=== PATIENT | female | born 1950 | race Caucasian/White ===

== ENCOUNTER 2016-09-19 12:29 | Emergency (ER) | payer BC, OTHER ==
[~2016-09-19] VITALS: Ht 182.9 cm; Wt 100.7 kg
[~2016-09-19 12:29] MED LIST: MULT50TA3 PO; OXYB5TAB74 PO; RABE20TA5 PO; VTMD1000 PO
[2016-09-19 12:42] VITALS: TEMP 36.6; Ht 182.9 cm; Wt 100.7 kg
[2016-09-19] MEDS ORDERED: KETOROLAC TROMETHAMINE 30 MG/ML VIAL IV STA (13:15)
[2016-09-19] MEDS ORDERED: SODIUM CHLORIDE 0.9% 1000ML 1,000 ML IV STA (13:15)
--- NOTE | 2016-09-19 13:30 | DIAGNOSTIC IMAGING REPORT ---
CHEST ONE VIEW PORTABLE CLINICAL HISTORY: Chest Pain dyspnea COMPARISON STUDY: No previous studies for comparison. FINDINGS: The bones soft tissues and hemidiaphragms are normal. The cardiomediastinal silhouette is normal. The lungs are clear. The pulmonary vasculature is normal. Small fixed lateral hernia IMPRESSION: Negative chest. Small hiatal hernia Electronically signed by: Doron Hankins M.D. 09/19/2016 1:29 PM Dictated Date/Time: 09/19/2016 1:29 PM
[2016-09-19 14:14] LABS: BASO % 0.2 %; BASO ABS # 0.01 K/uL (0-0.2); COMPLETE YES; EOS % 0.9 %; HEMATOCRIT 46.5 % (37-47); LYMPH % 27.5 %; LYMPH ABS # 1.24 K/uL (1.2-3.4); MEAN CELL VOLUME 92.6 fL (80-100); MEAN CORPUSCULAR HEMOGLOBIN 31.9 pg (25-34); MEAN CORPUSCULAR HGB CONC 34.4 g/dl (32-36); MEAN PLATELET VOLUME 9.5 fL (7.4-10.4); MONO % 11.3 %; NEUT % 60.1 %; PLATELET COUNT 191 K/uL (130-400); RED BLOOD COUNT 5.02 M/uL (4.2-5.4); WHITE BLOOD COUNT 4.51 K/uL (4.8-10.8)
[2016-09-19 14:39] LABS: ALKALINE PHOSPHATASE 84 U/L (45-117); ALT/SGPT 33 U/L (12-78); BLOOD UREA NITROGEN 16 mg/dl (7-18); CALCIUM 9.6 mg/dl (8.5-10.1); CARBON DIOXIDE 24 mmol/L (21-32); CHLORIDE 102 mmol/L (98-107); GLUCOSE 137 mg/dl (70-99); SODIUM 138 mmol/L (136-145)
[2016-09-19 15:23] LABS: POTASSIUM 3.7 mmol/L (3.5-5.1)
[2016-09-19] MEDS ORDERED: OSEL75CA12 PO (15:48)
[2016-09-19] MEDS ORDERED: OSELTAMIVIR PHOSPHATE 75 MG CAP PO STA (15:48)
[2016-09-19 16:05] VITALS: BP 130/80; PULSE 60; O2SAT 97
--- NOTE | 2016-09-19 16:20 | EMERGENCY ROOM VISIT NOTE ---
History Report prepared by Fiorella: Carola Laughlin Under the Supervision of: Dr. Zina Ngo D.O. First contact with patient: 13:05 Chief Complaint: DIARRHEA Stated Complaint: ILLNESS Nursing Triage Summary: Arrives ALS for evaluation of sudden onset of diarrhea, feeling ill this am. Pt reports ill since Monday09/17/16 with chills, nausea, H/A, loss of appetite and prod cough with yellow sputum. Pt had BP taken at work and was hypotensive sbp 80's. 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 History of Present Illness The patient is a 65 year old female who presents to the Emergency Room with complaints of a persistent illness that initially began Monday. The patient states that Monday she started with a cough, runny nose, sore throat, chills, and fatigue. She states that this morning she developed diarrhea and additionally felt nauseous noting 3 diarrhea bowel movements. The patient states that she felt lightheaded and dizzy while at work today and had a near syncopal episode while at work. She states that she was in the bathroom standing when the episode occurred stating that it was after a bowel movement. The patient denies any recent antibiotic usage. Pt denies headache, change in vision, fevers, chest pain, shortness of breath, vomiting, abdominal pain, pain with urination, and melena. Source of History: patient Onset: Monday Position: other (global) Quality: other (illness) Timing: other (persistent) Associated Symptoms: + chills, + cough, + diarrhea, + fatigue, + nausea, + sorethroat Note: Associated Symptoms: runny nose Review of Systems See HPI for pertinent positives & negatives. A total of 10 systems reviewed and were otherwise negative. Past Medical & Surgical Medical Problems: (1) Acid reflux Family History No pertinent family history stated. Social History Smoking Status: Former Smoker Marital Status: Housing Status: lives with significant other Occupation Status: employed Current/Historical Medications Scheduled Cholecalciferol (Vitamin D3), 1,000 INTER.UNIT PO QAM Multiple Vitamins W/ Minerals (One Daily 50 Plus), 1 TAB PO QAM Oseltamivir (Tamiflu), 75 MG PO BID Oxybutynin Chloride (Ditropan), 5 MG PO QAM Allergies Coded Allergies: Clarithromycin (Unverified Allergy, Severe, SHORTNESS OF BREATH, ITCH, ) Levofloxacin (Verified Allergy, Mild, SKIN CRAWLING FELLING, 09/19/16) Penicillins (Verified Allergy, Mild, HIVES, 09/19/16) Sulfa Antibiotics (Verified Allergy, Mild, hives, 09/19/16) Meperidine (Verified Adverse Reaction, Unknown, HEADACHES, 09/19/16) Physical Exam Vital Signs Date Time Temp Pulse Resp B/P Pulse Ox O2 Delivery O2 Flow Rate FiO2 09/19/16 16:05 60 18 130/80 97 Room Air 09/19/16 15:01 59 18 133/75 98 Room Air 09/19/16 12:47 Room Air 09/19/16 12:44 65 09/19/16 12:42 36.6 60 17 121/63 98 Room Air Physical Exam GENERAL: Disheveled, sitting up in bed, no acute distress, nontoxic. Dry nonproductive cough EYE EXAM: normal conjunctiva. OROPHARYNX: no exudate, no erythema, lips, buccal mucosa, and tongue normal and mucous membranes are moist NECK: supple, no nuchal rigidity, no adenopathy, non-tender LUNGS: Clear to auscultation. Normal chest wall mechanics HEART: no murmurs, S1 normal and S2 normal ABDOMEN: abdomen soft, non-tender, normo-active bowel sounds, no masses, no rebound or guarding. BACK: Back is symmetrical on inspection and there is no deformity, no midline tenderness, no CVA tenderness. SKIN: no rashes and no bruising UPPER EXTREMITIES: upper extremities are grossly normal. LOWER EXTREMITIES: No pitting edema. NEURO EXAM: Normal sensorium, cranial nerves II-XII grossly intact, normal speech, no gross weakness of arms, no gross weakness of legs. No drift. Finger to nose intact. Gross sensation intact. Rapid alternating movements of the upper extremities are intact. Medical Decision & Procedures ER Provider Diagnostic Interpretation: Xray results per the radiologist and my interpretation. Other results have been interpreted by the radiologist and reviewed by me. CHEST ONE VIEW PORTABLE CLINICAL HISTORY: Chest Pain dyspnea COMPARISON STUDY: No previous studies for comparison. FINDINGS: The bones soft tissues and hemidiaphragms are normal. The cardiomediastinal silhouette is normal. The lungs are clear. The pulmonary vasculature is normal. Small fixed lateral hernia IMPRESSION: Negative chest. Small hiatal hernia Electronically signed by: Doron Hankins M.D. 09/19/2016 1:29 PM Dictated Date/Time: 09/19/2016 1:29 PM Laboratory Results 09/19/16 14:00 Red Blood Count 5.02, Mean Corpuscular Volume 92.6, Mean Corpuscular Hemoglobin 31.9, Mean Corpuscular Hemoglobin Concent 34.4, Mean Platelet Volume 9.5, Neutrophils (%) (Auto) 60.1, Lymphocytes (%) (Auto) 27.5, Monocytes (%) (Auto) 11.3, Eosinophils (%) (Auto) 0.9, Basophils (%) (Auto) 0.2, Neutrophils # (Auto ) 2.71, Lymphocytes # (Auto) 1.24, Monocytes # (Auto) 0.51, Eosinophils # (Auto ) 0.04, Basophils # (Auto) 0.01 09/19/16 14:00 Test 09/19/16 14:00 09/19/16 14:03 White Blood Count 4.51 K/uL (4.8-10.8) Red Blood Count 5.02 M/uL (4.2-5.4) Hemoglobin 16.0 g/dL (12.0-16.0) Hematocrit 46.5 % (37-47) Mean Corpuscular Volume 92.6 fL (80-100) Mean Corpuscular Hemoglobin 31.9 pg (25-34) Mean Corpuscular Hemoglobin Concent 34.4 g/dl (32-36) Platelet Count 191 K/uL (130-400) Mean Platelet Volume 9.5 fL (7.4-10.4) Neutrophils (%) (Auto) 60.1 % Lymphocytes (%) (Auto) 27.5 % Monocytes (%) (Auto) 11.3 % Eosinophils (%) (Auto) 0.9 % Basophils (%) (Auto) 0.2 % Neutrophils # (Auto) 2.71 K/uL (1.4-6.5) Lymphocytes # (Auto) 1.24 K/uL (1.2-3.4) Monocytes # (Auto) 0.51 K/uL (0.11-0.59) Eosinophils # (Auto) 0.04 K/uL (0-0.5) Basophils # (Auto) 0.01 K/uL (0-0.2) RDW Standard Deviation 42.8 fL (36.4-46.3) RDW Coefficient of Variation 12.7 % (11.5-14.5) Immature Granulocyte % (Auto) 0.0 % Immature Granulocyte # (Auto) 0.00 K/uL (0.00-0.02) Anion Gap 12.0 mmol/L (3-11) Est Creatinine Clear Calc Drug Dose 58.1 ml/min Estimated GFR () 50.2 Estimated GFR (Non- 43.3 BUN/Creatinine Ratio 12.0 (10-20) Calcium Level 9.6 mg/dl (8.5-10.1) Total Bilirubin 0.6 mg/dl (0.2-1) Direct Bilirubin mg/dl (0-0.2) Aspartate Amino Transf (AST/SGOT) U/L (15-37) Alanine Aminotransferase (ALT/SGPT) 33 U/L (12-78) Alkaline Phosphatase 84 U/L (45-117) Total Creatine Kinase U/L (26-192) Creatine Kinase MB 0.9 ng/ml (0.5-3.6) Creatine Kinase MB Ratio (0-3.0) Troponin I < 0.015 ng/ml (0-0.045) Total Protein 9.1 gm/dl (6.4-8.2) Albumin 4.5 gm/dl (3.4-5.0) Lipase 210 U/L (73-393) Influenza Type A Antigen POS for Influ A (NEG) Influenza Type B Antigen Neg for Influ B (NEG) Laboratory results per my review. Medications Administered Medications (Trade) Dose Ordered Sig/Jose Route Start Time Stop Time Status Last Admin Dose Admin Sodium Chloride (Nss 1000ml) 1,000 ml @ 999 mls/hr Q1H1M STAT IV 09/19/16 13:15 09/19/16 15:17 DC 09/19/16 13:15 999 MLS/HR Oseltamivir Phosphate (Tamiflu Cap) 75 mg NOW STAT PO 09/19/16 15:48 09/19/16 15:49 DC 09/19/16 16:03 75 MG ECG Indication: syncope Rate (beats per minute): 63 Rhythm: sinus rhythm Findings: no ectopy, other (left axis) Comparison ECG Date: no prior available ED Course ED COURSE: Vital signs were reviewed and showed normal vitals. The patients medical record was reviewed The above diagnostic studies were performed and reviewed. ED treatments and interventions as stated above. 1308: The patient was evaluated in room A12A. A complete history and physical examination was performed. 1315: Ordered Sodium Chloride 1000 ml @ 999 mls/hr IV. 1400: I reevaluated the patient and she is resting comfortably. 1425: I reevaluated the patient and she informed me that she has had three days worth of diarrhea. 1548: Ordered Tamiflu Cap 75 mg PO. 1550: Upon reevaluation, the patient is resting comfortably.I discussed my findings with the patient and she understands and agrees with the treatment plan. Based on the patients age, coexisting illnesses, exam and lab findings the decision to treat as an outpatient was made. The patient remained stable while under my care. The patient appeared well at the time of discharge. Medical Decision Differential Diagnosis includes but is not limited to dehydration, stroke, anemia, hypoglycemia, hyponatremia, hypernatremia, urinary tract infection, pneumonia, bronchitis, sepsis, gastroenteritis, additional abdominal pathology, metabolic abnormalities and infections. Patient is a 65-year-old female who presents the ER for cough associated with sore throat, diffuse weakness and diarrhea which has been present for the past 3 days. She denies any fevers. No recent travel. No antibiotics. Her abdominal exam is benign. She has no belly plain. Labs show no significant leukocytosis or anemia. BMP along with AST and total bilirubin are normal. Troponin was normal. Lipase was normal. Chest x-ray was unremarkable. Influenza A was positive. Patient was updated regards to findings. She was given a bolus normal saline and Tamiflu. Unable to obtain a stool sample but she is a low risk for C. difficile. She was discharged with Tamiflu and instructed to follow-up with her primary care doctor. Discussed with Pt concerning signs and symptoms to watch out for. Pt was instructed to follow up with their PCP and discussed with the patient their option to return to the ED at anytime for persistent or worsening symptoms. The appropriate anticipatory guidance and out-patient management, including indications for return to the emergency department, were explained at length to the patient and understood. Impression Primary Impression: Influenza A Additional Impression: Diarrhea Scribe Attestation The scribe's documentation has been prepared under my direction and personally reviewed by me in its entirety. I confirm that the note above accurately reflects all work, treatment, procedures, and medical decision making performed by me. Departure Information Dispostion Home / Self-Care Prescriptions Oseltamivir (Tamiflu) 75 Mg Cap 75 MG PO BID, #10 CAP Prov: Garcia Mason, DO 09/19/16 Referrals Manuela King M.D. (PCP) Forms HOME CARE DOCUMENTATION FORM, IMPORTANT VISIT INFORMATION, WORK / SCHOOL INSTRUCTIONS Patient Instructions Diarrhea, My [facility], Oseltamivir Phosphate Oral capsule Additional Instructions Please follow up with your primary care doctor with in the next 24 hours. Any worsening of your symptoms, please return to the ED immediately. This includes any fevers greater than 100.4, passing out, worsening shortness of breath, confusion, or any other concerning signs or symptoms from your standpoint. If he continues to have diarrhea for the next 4 days please follow a primary care doctor for stool culture. Problem Qualifiers Additional Impression: Diarrhea Diarrhea type: unspecified type Qualified Codes: R19.7 - Diarrhea, unspecified
[2016-12-19] MEDS ORDERED: PANT40TA PO (16:40)
== END 2016-09-19 16:07 | disposition home or self-care (01) ==
LOC: EDBD 12:29 → C.EDA 12:30
DX: J09.X2 Influenza due to identified novel influenza A virus with other respiratory manifestations (principal); R19.7 Diarrhea, unspecified; K21.9 Gastro-esophageal reflux disease without esophagitis; Z87.891 Personal history of nicotine dependence; Z79.899 Other long term (current) drug therapy; Z88.0 Allergy status to penicillin; Z88.2 Allergy status to sulfonamides; Z88.8 Allergy status to other drugs, medicaments and biological substances

== ENCOUNTER 2016-12-15 13:28 | Inpatient (IN) | payer BC, OTHER ==
[~2016-12-15] VITALS: Ht 182.9 cm; Wt 102.6 kg
[~2016-12-15 13:28] MED LIST changes: +DTR/5 PO; +OSEL75CA12 PO; -OXYB5TAB74 PO; -RABE20TA5 PO
[2016-12-15 14:11] LABS: HEMATOCRIT 42.6 % (37-47); MEAN CELL VOLUME 92.6 fL (80-100); MEAN CORPUSCULAR HEMOGLOBIN 31.1 pg (25-34); MEAN CORPUSCULAR HGB CONC 33.6 g/dl (32-36); MEAN PLATELET VOLUME 9.1 fL (7.4-10.4); PLATELET COUNT 234 K/uL (130-400); WHITE BLOOD COUNT 10.02 K/uL (4.8-10.8)
--- NOTE | 2016-12-15 14:14 | DIAGNOSTIC IMAGING REPORT ---
SINGLE VIEW CHEST CLINICAL HISTORY: Atypical chest pain. FINDINGS: An AP, portable, upright chest radiograph is compared to study dated 09/19/2016. The examination is mildly degraded by portable technique and patient rotation. The heart is top normal for projection. The mediastinal contour is within normal limits. The lungs and pleural spaces are clear. No pneumothorax is seen. The skeletal structures are osteopenic. The bony thorax is grossly intact. Calcific tendinopathy is noted in the right shoulder. IMPRESSION: No active disease in the chest. Electronically signed by: Nir Lakhani M.D. 12/15/2016 2:13 PM Dictated Date/Time: 12/15/2016 2:10 PM
[2016-12-15 14:20] LABS: PARTIAL THROMBOPLASTIN RATIO 1.1; PROTHROMBIN TIME (PATIENT) 10.4 SECONDS (9.0-12.0)
[2016-12-15] MEDS ORDERED: MoRPHine SULFATE 4 MG/ML 1 ML CARP\\VIAL IV STA (14:21)
[2016-12-15] MEDS ORDERED: ONDANSETRON INJ 2 MG/ML 2 ML VIAL IV STA (14:21)
[2016-12-15] MEDS ORDERED: NITROGLYCERIN OINT 2% 1GM PACKET EXT STA (14:21)
[2016-12-15] MEDS ORDERED: ASPIRIN 324 MG CHEW PO STA (14:21)
[2016-12-15 14:33] LABS: BUN/CREATININE RATIO 19.1 (10-20); CALCIUM 9.7 mg/dl (8.5-10.1); CREATININE 0.88 mg/dl (0.60-1.20); POTASSIUM 4.1 mmol/L (3.5-5.1)
[2016-12-15] MEDS ORDERED: NITROGLYCERIN OINT 2% 1GM PACKET ONE (14:35)
[2016-12-15 14:37] LABS: ALB/GLOB RATIO 1.2 (0.9-2); CKMB/CK RATIO 1.3 (0-3.0)
[2016-12-15] MEDS ORDERED: RANI150T2 PO (15:00)
[2016-12-15] MEDS ORDERED: FAMO20TA11 PO (15:01)
[2016-12-15] MEDS ORDERED: IBUP-1459 PO (15:02)
--- NOTE | 2016-12-15 15:41 | EMERGENCY ROOM VISIT NOTE ---
History First contact with patient: 14:05 Chief Complaint: CHEST PAIN Stated Complaint: TIGHT CHEST Nursing Triage Summary: Pt presents with mid to right sided chest pain since 0900, constant. Denies sob , lightheadedness. Denies radiation of pain. History of Present Illness The patient is a 66 year old female who presents to the Emergency Room via private vehicle with complaints of "tight chest". The patient states that earlier today around 9 to 9:30 AM she began with acid reflux, followed by hiccuping and vomiting. She notes that she did develop right anterior chest pain that is also substernal. She rates the pain as 10/10 and constant. This pain is worse with movement. She does not have any history of having this before and denies any history of heart troubles, heart attacks or blood clots. Review of Systems A complete 10-point Review of Systems was discussed with the patient, with pertinent positives and negatives listed in the History of Present Illness. All remaining Review of Systems questions can be considered negative unless otherwise specified. Past Medical/Surgical History Medical Problems: (1) Acid reflux (2) Chest pain cholecystectomy appendectomy esophageal stricture s/p dilatation c/s x 2 right foot surgery (tendon rupture) Family History Maternal - GERD; from pancreatic cancer, age 85 Paternal - GERD; from dementia at age 87 Social History Smoking Status: Former Smoker Marital Status: Housing Status: lives with significant other Occupation Status: employed Social History: Marital Status: , 2 children Occupational Status: employed, [employer] Smoking Status: Former Smoker (quit 31 years ago; smoked 10-15 years ) Alcohol Use: weekends - 2 glasses of liquor or wine each day on a weekend Current/Historical Medications Scheduled Cholecalciferol (Vitamin D3), 1,000 INTER.UNIT PO QAM Famotidine (Pepcid), 40 MG PO UD Multiple Vitamins W/ Minerals (One Daily 50 Plus), 1 TAB PO QAM Oxybutynin Chloride (Ditropan), 5 MG PO QAM Scheduled PRN Ibuprofen (Motrin), 400 MG PO Q6H PRN for Pain Ranitidine HCl (Ranitidine HCl), 150 MG PO UD PRN for Indigestion Allergies Coded Allergies: Clarithromycin (Verified Allergy, Severe, SHORTNESS OF BREATH, ITCH, ) Penicillins (Verified Allergy, Intermediate, HIVES, 12/15/16) Sulfa Antibiotics (Verified Allergy, Intermediate, hives, 12/15/16) Levofloxacin (Verified Allergy, Mild, SKIN CRAWLING FELLING, 12/15/16) Meperidine (Verified Adverse Reaction, Mild, HEADACHES, 12/15/16) Physical Exam Vital Signs Date Time Temp Pulse Resp B/P Pulse Ox O2 Delivery O2 Flow Rate FiO2 12/15/16 19:35 83 26 150/76 97 Room Air 12/15/16 18:07 85 12/15/16 17:24 81 18 145/72 95 Room Air 12/15/16 14:37 69 17 160/75 98 Room Air 12/15/16 13:55 99 Room Air 12/15/16 13:55 99 Room Air 12/15/16 13:48 84 12/15/16 13:31 36.7 98 16 178/91 99 Room Air Physical Exam VITAL SIGNS - Vital signs and nursing notes were reviewed. Patient is afebrile , hypertensive at 178/91, tachycardic at a rate of 90 bpm and is saturating well on room air at 99%. GENERAL -66-year-old female her appearing [] stated age who is in no acute distress. Communicates well with provider and answers questions appropriately. SKIN - Without rashes. No petechial rashes. HEAD - NC/AT. EYES - PERRL with EOMI bilaterally. Sclera anicteric. Palpebral conjunctiva pink and moist with no injection noted. EARS - No deformities of external structures noted on gross examination bilaterally. No pain elicited with palpation of the tragus bilaterally. External auditory canals without discharge or otorrhea. Tympanic membranes pearly hinton without retraction or bulging. No fluid or purulent material visualized behind the TM. Handle of malleus, umbo, cone of light, pars tensa/ flaccid all easily visualized. NOSE - Midline and without cyanosis. No epistaxis or purulent drainage noted. Septum midline without deviation or septal hematoma noted. MOUTH/OROPHARYNX - Without perioral cyanosis. Buccal mucosa pink and moist and without leukoplakia. Tongue midline with equal elevation of palate bilaterally. No tonsillar hypertrophy, erythema, or exudates noted. Good dentition noted. NECK - Neck with FROM. Supple to palpation. No lymphadenopathy noted. No nuchal rigidity. LUNGS - Chest wall symmetric without accessory muscle use, intercostals retractions, or central cyanosis. Normal vesicular breath sounds CTA B/L. No wheezes, rales, or rhonchi appreciated. CARDIAC - RRR with S1/S2. holosystolic murmur best appreciated at apex. No rubs , or gallops appreciated. The anterior chest pain is not reproducible with palpation. ABDOMEN - Abdominal contour without pulsations or visible masses. BS normoactive all four quadrants. No tenderness, palpable masses, hepatosplenomegaly, or ascites noted. EXTREMITIES - No clubbing or peripheral cyanosis. No pretibial edema present. + 5/5 strength noted in UE/LE bilaterally. NEUROLOGIC - Cranial nerves II through XII grossly intact. Patellar reflexes +2/ 4. PSYCH - A&Ox3 and cooperates fully with examiner. Pt is very pleasant and interacts well with examiner. Medical Decision & Procedures ER Provider Diagnostic Interpretation: contrast was administered without complication. MIP imaging was performed. CT DOSE: 501.34 mGy.cm FINDINGS: There is a hiatal hernia with moderate diffuse esophageal wall thickening. There is an enlarged 15 mm lymph node near the esophagogastric junction. 15 mm lymph node near the esophagogastric junction. No evidence of pathologic axillary or hilar adenopathy. There was no evidence of thoracic aortic dilatation. There were no pulmonary artery filling defects to indicate acute pulmonary embolism. No pleural effusions are visualized. There are dependent atelectatic changes. There is no focal pulmonary consolidation. IMPRESSION: 1. No CT evidence of acute pulmonary embolism 2. No evidence of focal pulmonary consolidation 3. Moderate diffuse esophageal wall thickening with an enlarged 15 mm lymph node near the esophagogastric junction. Electronically signed by: Willem Farrell M.D. 12/15/2016 4:52 PM Dictated Date/Time: 12/15/2016 4:48 PM Laboratory Results Test 12/15/16 13:55 12/15/16 14:30 Prothrombin Time 10.4 SECONDS (9.0-12.0) Prothromb Time International Ratio 1.0 (0.9-1.1) Activated Partial Thromboplast Time 27.4 SECONDS (21.0-31.0) Partial Thromboplastin Ratio 1.1 D-Dimer 1800 ug/L FEU (0-500) Total Bilirubin 0.8 mg/dl (0.2-1) Aspartate Amino Transf (AST/SGOT) 18 U/L (15-37) Alanine Aminotransferase (ALT/SGPT) 24 U/L (12-78) Alkaline Phosphatase 86 U/L (45-117) Total Creatine Kinase 109 U/L (26-192) Creatine Kinase MB 1.4 ng/ml (0.5-3.6) Creatine Kinase MB Ratio 1.3 (0-3.0) Total Protein 8.5 gm/dl (6.4-8.2) Albumin 4.6 gm/dl (3.4-5.0) Globulin 3.9 gm/dl (2.5-4.0) Albumin/Globulin Ratio 1.2 (0.9-2) Bedside Troponin I 0.000 ng/ml (0-0.045) Medications Administered Medications (Trade) Dose Ordered Sig/Jose Route Start Time Stop Time Status Last Admin Dose Admin Morphine Sulfate (MoRPHine SULFATE INJ) 4 mg NOW STAT IV 12/15/16 14:21 12/15/16 14:23 DC 12/15/16 14:43 4 MG Ondansetron HCl (Zofran Inj) 4 mg NOW STAT IV 12/15/16 14:21 12/15/16 14:23 DC 12/15/16 14:39 4 MG Aspirin (Aspirin Chew) 324 mg NOW STAT PO 12/15/16 14:21 12/15/16 14:23 DC 12/15/16 14:44 324 MG Nitroglycerin (Nitroglycerin 2% Oint) 0.5 inch NOW STAT EXT 12/15/16 14:21 12/15/16 14:23 DC 12/15/16 14:42 0.5 INCH Lidocaine HCl (Viscous Lidocaine 2% Soln) 20 ml STK-MED ONCE .ROUTE 12/15/16 17:21 12/15/16 17:22 DC 12/15/16 17:23 20 ML Al Hydroxide/Mg Hydroxide 30 ml 30 ml STK-MED ONCE .ROUTE 12/15/16 17:21 12/15/16 17:22 DC 12/15/16 17:23 30 ML Pantoprazole Sodium/Syringe (Protonix Inj/ Syringe) 10 ml @ 5 mls/min TODAY@1845 IV 12/15/16 18:45 12/15/16 19:00 DC 12/15/16 19:39 5 MLS/MIN Sucralfate 1 gm 1 gm 1915 ONCE PO 12/15/16 19:15 4/27/17 19:16 DC 12/15/16 19:58 1 GM Sodium Chloride (Nss 1000ml) 1,000 ml @ 125 mls/hr Q8H IV 12/15/16 19:48 01/14/17 19:47 12/15/16 23:58 125 MLS/HR Medical Decision Patient was seen and evaluated as above. After obtaining a thorough history and physical examination IV access was initiated and the above workup was performed. The patient presents with chest pain, and history of GERD. She states that this feels different than her typical GERD. She does not appear to have many risk factors at this time, however ACS cannot be excluded. CBC reveals no leukocytosis or anemia. Coagulation studies unremarkable. D-dimer elevated at 1800. Her electrolytes were normal. Glucose was 110. Total protein elevated 8.5. Troponin here is 0. Chest x-ray essentially unremarkable for acute process. CTA was ordered because of the patient's d- dimer and I could not PERC negative her and she was 66 years old with tachycardia. D-dimer was elevated, scan was initiated. Scan is noted as above. The patient has esophageal thickening and a hiatal hernia. This certainly could be contributing to her pain suggesting perhaps she had esophagitis. Her pain was alleviated by nitroglycerin. The patient was discussed my attending. The patient's EKG revealed a normal sinus rhythm with left axis deviation, rate of 80 bpm. This was compared to EKG of 09/19/2016. This was also normal sinus. No significant change was found at this time. The patient's troponin was negative 1 is no significant EKG change. The patient certainly does have symptoms that are likely secondary to GERD however I cannot rule out ACS in the emergency department setting. I do believe it is warranted the patient stay overnight in the hospital for monitoring of her heart rhythm followed by troponin repeats. Further workup may be warranted if arrhythmias are noted, or troponins are elevated etc. I did discuss the case with the hospitalist team. Please refer to further documentation regarding her stay. In evaluation treatment this patient following differential diagnoses were entertained: NM, PE, pericarditis, pleurisy, pneumonia, pneumothorax, esophageal cancer, esophagitis, among others. Impression Primary Impression: Chest pain Additional Impressions: Anemia Esophageal thickening Departure Information Dispostion Admitted as an inpatient Condition FAIR Referrals Manuela King M.D. (PCP) Patient Instructions [facility] Problem Qualifiers
[2016-12-15] MEDS ORDERED: OPTIRAY 320 IV PRN (16:00)
--- NOTE | 2016-12-15 16:53 | DIAGNOSTIC IMAGING REPORT ---
CT ANGIOGRAM OF THE CHEST CLINICAL HISTORY: Atypical chest pain COMPARISON STUDY: Chest x-ray dated 12/15/2016 TECHNIQUE: Following the IV administration of 86 mL of Optiray-320, CT angiogram of the thorax was performed from the thoracic inlet to the lung bases utilizing the pulmonary embolus protocol. Images are reviewed in the axial, sagittal, and coronal planes. IV contrast was administered without complication. MIP imaging was performed. CT DOSE: 501.34 mGy.cm FINDINGS: There is a hiatal hernia with moderate diffuse esophageal wall thickening. There is an enlarged 15 mm lymph node near the esophagogastric junction. 15 mm lymph node near the esophagogastric junction. No evidence of pathologic axillary or hilar adenopathy. There was no evidence of thoracic aortic dilatation. There were no pulmonary artery filling defects to indicate acute pulmonary embolism. No pleural effusions are visualized. There are dependent atelectatic changes. There is no focal pulmonary consolidation. IMPRESSION: 1. No CT evidence of acute pulmonary embolism 2. No evidence of focal pulmonary consolidation 3. Moderate diffuse esophageal wall thickening with an enlarged 15 mm lymph node near the esophagogastric junction. Electronically signed by: Willem Farrell M.D. 12/15/2016 4:52 PM Dictated Date/Time: 12/15/2016 4:48 PM
[2016-12-15] MEDS ORDERED: GI COCKTAIL PO STA (17:06)
[2016-12-15] MEDS ORDERED: LIDOCAINE HCL 2% VISC SOLN 20 ML UDC ONE (17:21)
[2016-12-15] MEDS ORDERED: ALUMINUM/MAGNESIUM SUSP 30 ML UDC ONE (17:21)
--- NOTE | 2016-12-15 18:38 | EMERGENCY ROOM VISIT NOTE ---
ED Visit Note First contact with patient: 18:00 I seen and evaluated the patient at bedside and agree with the PAs plan loss far. We have discussed the labs and imaging as well as the patient's risk factors. Patient with continued chest pain despite negative evaluation so far. While likely secondary to esophageal inflammation noted on CT and history of GERD, needs additional observation and serial troponins to rule out ACS. No other acute vascular pulmonary pathology noted. Patient with stable vitals on the emergency room, verbalized understanding of all results and was agreeable with plan.
[2016-12-15] MEDS ORDERED: PANTOprazole INJ 40 MG in SYRINGE 0 ML IV SCH (18:45)
[2016-12-15] MEDS ORDERED: SUCRALFATE 1 GM/10 ML UDC PO ONE (19:15)
[2016-12-15] MEDS ORDERED: ZOLPIDEM TARTRATE 5 MG TAB PO PRN (20:00)
[2016-12-15] MEDS ORDERED: ALUMINUM/MAGNESIUM/SIMETH (MAALOX MAX) 30 ML UDC PO PRN (20:00)
[2016-12-15] MEDS ORDERED: ONDANSETRON INJ 2 MG/ML 2 ML VIAL IV PRN (20:00)
[2016-12-15] MEDS ORDERED: MoRPHine SULFATE 2 MG/ML CARP IV PRN (20:00)
[2016-12-15] MEDS ORDERED: SODIUM CHLORIDE 0.9% 500ML 500 ML IV ONE (20:17)
[2016-12-15 20:20] VITALS: BP 162/72; PULSE 81; TEMP 36.9; O2SAT 95; Ht 182.9 cm; Wt 102.6 kg
[2016-12-15] MEDS ORDERED: IV FLUIDS COMPLETED PRN (20:30)
[2016-12-15] MEDS: ACETAMINOPHEN 325 MG TAB PO PRN (20:46)
--- NOTE | 2016-12-15 21:04 | History and Physical ---
History & Physical Date & Time of Service: Dec 15, 2016 at 18:44 Chief Complaint: Tight Chest Primary Care Physician: Maunela King M.D. History of Present Illness Source: patient, spouse 66yo female with h/o GERD who presents with ongoing chest symptoms since 9am this morning. She was at the [facility] eating breakfast with her friends when she developed discomfort in the mid-chest region after trying to swallow food. She feels like food got caught in the esophagus. It caused discomfort and thus she tried to regurgitate the food but she wasn't successful. She then developed constant, substernal "heart attack" type pain that has persisted all day. Some of the pain has radiated to the right side of her chest. She ultimately came to [facility] for evaluation because of the persistence of the symptoms. In the ER she has received morphine, nitroglycerin and GI cocktail - all with partial relief of symptoms. She does not take PPI but uses pepcid ac and zantac on a PRN basis. Most days of the week she gets GERD symptoms. She has occasional nocturnal symptoms. No recent weight loss. She does have frequent dysphagia, mainly for solids. Takes NSAIDs - motrin - perhaps 2-3x's each week. Uses this for arthritis. Admits to alcohol use but just on weekends (liquor and/or wine). Denies any recent exertional chest pain or sob. Past Medical/Surgical History PMH: 1. GERD 2. esophageal stricture s/p dilatation - 2015 (Dr. Braxton Sweeney) PSH: 1. c/s x 2 2. right foot surgery (tendon rupture) 3. cholecystectomy 4. appendectomy Family History mother - GERD; from pancreatic cancer, age 85 father - GERD; from dementia at age 87 no family h/o esophageal cancer Social History Smoking Status: Former Smoker (quit 31 years ago; smoked 10-15 years ) Alcohol Use: weekends - 2 glasses of liquor or wine each day on a weekend Marital Status: (2 kids) Occupational Status: employed (works at [email or web address]) Allergies Coded Allergies: Clarithromycin (Verified Allergy, Severe, SHORTNESS OF BREATH, ITCH, ) Penicillins (Verified Allergy, Intermediate, HIVES, 12/15/16) Sulfa Antibiotics (Verified Allergy, Intermediate, hives, 12/15/16) Levofloxacin (Verified Allergy, Mild, SKIN CRAWLING FELLING, 12/15/16) Meperidine (Verified Adverse Reaction, Mild, HEADACHES, 12/15/16) Home Medications Scheduled Cholecalciferol (Vitamin D3), 1,000 INTER.UNIT PO QAM Famotidine (Pepcid), 40 MG PO UD Multiple Vitamins W/ Minerals (One Daily 50 Plus), 1 TAB PO QAM Oxybutynin Chloride (Ditropan), 5 MG PO QAM Scheduled PRN Ibuprofen (Motrin), 400 MG PO Q6H PRN for Pain Ranitidine HCl (Ranitidine HCl), 150 MG PO UD PRN for Indigestion Review of Systems Constitutional: No chills, No fatigue, No fever, No weight loss ENT: + trouble swallowing, No nasal symptoms, No sore throat Respiratory: + problem reported (snoring ), No cough, No dyspnea on exertion, No shortness of breath, No wheezing Cardiovascular: + chest pain, No PND, No orthopnea Abdomen: + vomiting (x 2 earlier today), No GI bleeding, No pain Genitourinary - Female: No dysuria, No hematuria Neurologic: No numbness/tingling Psychiatric: No anxiety, No depression symptoms Endocrine: No fatigue Hematologic / Lymphatic: No abnormal bleeding/bruising Integumentary: No rash Physical Exam Vital Signs Date Time Temp Pulse Resp B/P Pulse Ox O2 Delivery O2 Flow Rate FiO2 12/15/16 18:07 85 12/15/16 17:24 81 18 145/72 95 Room Air 12/15/16 14:37 69 17 160/75 98 Room Air 12/15/16 13:55 99 Room Air 12/15/16 13:55 99 Room Air 12/15/16 13:48 84 12/15/16 13:31 36.7 98 16 178/91 99 Room Air General Appearance: + mild distress (looks uncomfortable; belching and occasionally holding her chest) Head: normocephalic, atraumatic Eyes: normal inspection, PERRL ENT: TMs normal, pharynx normal Neck: supple, no adenopathy, thyroid normal, no JVD Respiratory/Chest: normal breath sounds, no respiratory distress, no accessory muscle use, + crackles (slight, bases only), + pertinent finding (scant chest wall tenderness with palpation but the pain is different than the pain she has had all day) Cardiovascular: regular rate, rhythm, no gallop, no murmur, normal peripheral pulses Abdomen/GI: normal bowel sounds, non tender, soft, no organomegaly Back: normal inspection Extremities/Musculoskelatal: no pedal edema Neurologic/Psych: no motor/sensory deficits, alert, normal mood/affect, normal reflexes, oriented x 3 Skin: no rash Lymphatic: no adenopathy (cervical ) Diagnostics Laboratory Results Results Past 24 Hours Test 12/15/16 13:55 12/15/16 14:30 Range/Units White Blood Count 10.02 4.8-10.8 K/uL Red Blood Count 4.60 4.2-5.4 M/uL Hemoglobin 14.3 12.0-16.0 g/dL Hematocrit 42.6 37-47 % Mean Corpuscular Volume 92.6 80-100 fL Mean Corpuscular Hemoglobin 31.1 25-34 pg Mean Corpuscular Hemoglobin Concent 33.6 32-36 g/dl RDW Standard Deviation 42.6 36.4-46.3 fL RDW Coefficient of Variation 12.6 11.5-14.5 % Platelet Count 234 130-400 K/uL Mean Platelet Volume 9.1 7.4-10.4 fL Prothrombin Time 10.4 9.0-12.0 SECONDS Prothromb Time International Ratio 1.0 0.9-1.1 Activated Partial Thromboplast Time 27.4 21.0-31.0 SECONDS Partial Thromboplastin Ratio 1.1 D-Dimer 1800 0-500 ug/L FEU Sodium Level 138 136-145 mmol/L Potassium Level 4.1 3.5-5.1 mmol/L Chloride Level 103 98-107 mmol/L Carbon Dioxide Level 29 21-32 mmol/L Anion Gap 6.0 3-11 mmol/L Blood Urea Nitrogen 17 7-18 mg/dl Creatinine 0.88 0.60-1.20 mg/dl Est Creatinine Clear Calc Drug Dose 85.4 ml/min Estimated GFR () 79.9 Estimated GFR (Non- 68.9 BUN/Creatinine Ratio 19.1 10-20 Random Glucose 110 70-99 mg/dl Calcium Level 9.7 8.5-10.1 mg/dl Total Bilirubin 0.8 0.2-1 mg/dl Aspartate Amino Transf (AST/SGOT) 18 15-37 U/L Alanine Aminotransferase (ALT/SGPT) 24 12-78 U/L Alkaline Phosphatase 86 45-117 U/L Total Creatine Kinase 109 26-192 U/L Creatine Kinase MB 1.4 0.5-3.6 ng/ml Creatine Kinase MB Ratio 1.3 0-3.0 Total Protein 8.5 6.4-8.2 gm/dl Albumin 4.6 3.4-5.0 gm/dl Globulin 3.9 2.5-4.0 gm/dl Albumin/Globulin Ratio 1.2 0.9-2 Bedside Troponin I 0.000 0-0.045 ng/ml Diagnostic Radiology CTA chest: IMPRESSION: 1. No CT evidence of acute pulmonary embolism 2. No evidence of focal pulmonary consolidation 3. Moderate diffuse esophageal wall thickening with an enlarged 15 mm lymph node near the esophagogastric junction. EKG EKG - NSR, no ST changes Impression Assessment and Plan 66yo female with long-standing GERD and h/o esophageal stricture in 2016 requiring endoscopic dilatation by Dr. Braxton Sweeney presenting with constant, substernal chest discomfort since early this AM. Cardiopulmonary work-up thus far has been negative and CTA chest demonstrated esophageal thickening. The latter is the likely cause of her presenting symptoms. 1. chest pain - very unlikely to be cardiac in origin. Will obtain 2 more troponins to be complete but suspect these will be normal. Telemetry overnight. In light of the CTA findings showing the esophageal thickening/inflammation her pain is likely from the esophagus. Stop the nitropaste. Start IV protonix 40mg q12h. Carafate 1gm QID. IVF overnight. NPO. I spoke with Dr. Covarrubias from [facility] who will consult this evening. [facility] to likely perform EGD in am. Check H/H early tomorrow AM to exclude any upper GI bleeding. 2. GERD - PPI, carafate. 3. elevated BP without diagnosis of HTN - likely due to her esophageal pain. 4. FEN - NPO, IVF. 5. DVT proph - SCDs. 6. lymphadenopathy at GE junction on CTA chest - in light of the other esophageal findings hopefully this does not represent esophageal cancer. Again EGD in am. Patient will be placed on observation status. Level of Care Telemetry Resuscitation Status FULL RESUSCITATION VTE Prophylaxis Risk Level: Low Given or contraindicated: SCD's Note total time 60 minutes Additional Copies To Braxton Sweeney M.D.; Kobe Covarrubias M.D.; Manuela King M.D.
[2016-12-15] MEDS: SODIUM CHLORIDE 0.9% 1000ML 1,000 ML IV SCH ×2 (21:14→23:58)
--- NOTE | 2016-12-15 22:13 | GASTROINTESTINAL CONSULTATION ---
DATE OF CONSULTATION: 12/15/2016 CHIEF COMPLAINT: Chest pain, dysphagia, chronic heartburn. HISTORY OF PRESENT ILLNESS: Mrs. Mendoza is a 66-year-old white female with a history of reflux disease. Using p.r.n. Pepcid AC and ranitidine as well as prior AcipHex, which was unfortunately not continued due to insurance issues. The patient reports intermittent symptoms, perhaps few times a week, for which she uses Pepcid AC or ranitidine. Recently the patient presented to the Emergency Room this evening with a chest tightness. This began earlier this morning and she does describe a pattern that she knows that when she begins hiccupping, that there is either food that is stuck or that there is a significant reflux beginning to occur. There is also chest discomfort that did not radiate to her neck, down the arms or into the back. She denies any dyspnea on exertion or chest pain with exertion. The patient describes this pain as 10/10 pain, which was nearly constant. The patient does not report a history of coronary artery disease and has had evaluations for reflux disease over the years. The patient has seen Dr. Sweeney, Dr. Fernandes and [facility] several times over the years and had an upper endoscopy and colonoscopy by them. The upper endoscopy was approximately a year ago. PAST MEDICAL HISTORY: Acid reflux. The patient denies any known coronary artery disease. She does have a history of bladder spasms. Her gallbladder and appendix have been removed. SOCIAL HISTORY: The patient is a former smoker but has not smoked in many years. She is and employed. CURRENT HOME MEDICATIONS: Include oxybutynin, Ditropan, multivitamins, p.r.n. famotidine 40 mg daily, and vitamin D3 replacement. On occasion, she will use ibuprofen, Pepcid AC and ranitidine as needed. ALLERGIES: SHE IS ALLERGIC TO CLARITHROMYCIN, PENICILLIN, SULFA, LEVOFLOXACIN, AND MEPERIDINE. FAMILY HISTORY: Otherwise noncontributory. ROS: otherwise non contribtory based on 14 point exam. There is no weight loss reported. PHYSICAL EXAMINATION: VITAL SIGNS: Today on admission shows afebrile status 36.7, blood pressure is elevated at 178/91, respirations 16, heart rate 98. She is 99% on room air. Subsequent values this evening revealed blood pressure 145/72, respirations 18, heart rate 81, 95% on room air. GENERAL: The patient is awake, alert and oriented x3. HEENT: Sclerae are anicteric. Conjunctivae are moist. Oral mucosa is moist. NECK: There is no cervical or supraclavicular adenopathy. I do not appreciate thyromegaly. She has normal neck range of motion. NEUROLOGIC: The patient is nonfocal. HEART: Normal S1, S2. LUNGS: Clear to auscultation without rales, rhonchi or wheezes. ABDOMEN: Soft, nontender, nondistended with normoactive bowel sounds. There is no rebound or guarding. I do not appreciate hepatosplenomegaly. EXTREMITIES: Without clubbing, cyanosis or edema. RECTAL: Deferred at this time. LABORATORY STUDIES: On admission include white count 10.0, hemoglobin 14.3, 234,000 platelets. BUN and creatinine are 17 and 0.8 with a potassium of 4.1, blood sugar 110. MCV is 93. INR 1.0. Liver function tests: Total bilirubin 0.8, AST 18, ALT 24, alk phos 86, CPK-MB 1.4, albumin is 4.6. Bedside troponin is none detected. The patient in the Emergency Room was provided medication that included viscous Xylocaine, nitroglycerin ointment, aspirin, Zofran and morphine. She also was given Maalox suspension. IMPRESSION: The patient with acute onset of dysphagia, chest pain without radiation and nonexertional in nature. There is also a component of reflux with this. There is evidence of diffuse esophageal wall thickening on a CT scan performed this evening and a 15 mm lymph node near the EG junction of uncertain significance. There was no evidence of hilar adenopathy. There is a hiatal hernia noted. I made the following recommendations. The patient has a chronic history of reflux with CT scan suggesting thickening of the esophageal wall that may reflect inflammation. The lymph node is of unclear origin and this will warrant further investigation. I believe it is prudent to pursue an EGD tomorrow and this will be arranged with Dr. Sweeney who is covering the service on Monday. At some point depending on its findings, once the inflammation has been treated for several weeks, it may be reasonable to reassess this lymph node to ensure that it is of benign nature. This may be either through a repeat cross-sectional imaging or endoscopic ultrasound. Further recommendations to follow. We will keep the patient n.p.o. Continue PPI IV b.i.d. and ensure that there is no evidence of cardiac abnormalities. All questions answered for the patient. Thank you for allowing me to participate in the patient's care. KAYLA
[2016-12-15 23:51] VITALS: BP 115/72; PULSE 65; TEMP 37; O2SAT 93
[2016-12-15] MEDS: SUCRALFATE 1 GM/10 ML UDC PO SCH (23:58)
[2016-12-16 03:00] LABS: HEMATOCRIT 35.3 % (37-47)
[2016-12-16 03:14] VITALS: BP 102/64; PULSE 61; TEMP 36.4; O2SAT 93
[2016-12-16 07:35] VITALS: BP 123/74; PULSE 65; TEMP 36.6; O2SAT 94
[2016-12-16] MEDS: PANTOprazole INJ 40 MG in SYRINGE 0 ML IV SCH ×2 (07:41→20:15)
[2016-12-16] MEDS: SUCRALFATE 1 GM/10 ML UDC PO SCH ×4 (07:41→20:15)
--- NOTE | 2016-12-16 10:40 | Progress Note ---
Subjective Date of Service: Dec 16, 2016. Subjective Pt evaluation today including: conversation w/ patient, physical exam, chart review, lab review, review of studies, review of inpatient medication list Feeling much better. Remains NPO on IVF. Denies h/o any arrhythmias, just has a "murmur." No chest pain , no sob, no abd pain, no urinary symptoms. Problem List Medical Problems: (1) Diarrhea Status: Acute (2) Influenza A Status: Acute Review of Systems All Other Systems: Reviewed and Negative Medications Acetaminophen (Tylenol Tab) 650 mg Q4H PRN PO Last administered on 12/15/16 20:46; Admin Dose 650 MG; Start 12/15/16 at 20:00; Stop 01/14/17 at 19:59 Al Hydrox/Mg Hydrox/Simethicone (Maalox Max Susp) 15 ml Q4H PRN PO; Start 12/15 at 20:00; Stop 01/14/17 at 19:59 Ioversol 111 ml 111 ml UD PRN IV; Start 12/15/16 at 16:00; Stop 12/19/16 at 15: 59 Miscellaneous (Iv Fluids Completed) 1 ea PRN PRN N/A; Start 12/15/16 at 20:30; Stop 12/15/17 at 20:29 Morphine Sulfate 2 mg 2 mg Q3H PRN IV Last administered on 12/15/16 23:59; Admin Dose 2 MG; Start 12/15/16 at 20:00; Stop 12/29/16 at 19:59 Ondansetron HCl (Zofran Inj) 4 mg Q6H PRN IV; Start 12/15/16 at 20:00; Stop at 19:59 Oxybutynin Chloride (Ditropan Tab) 5 mg QAM PO; Start 12/16/16 at 09:00; Stop at 08:59 Pantoprazole Sodium/Syringe (Protonix Inj/ Syringe) 10 ml @ 5 mls/min BID@0900, 2100 IV Last administered on 12/16/16 07:41; Admin Dose 5 MLS/MIN; Start at 09:00; Stop 01/15/17 at 08:59 Sodium Chloride (Nss 1000ml) 1,000 ml @ 125 mls/hr Q8H IV Last administered on 12/15/16 23:58; Admin Dose 125 MLS/HR; Start 12/15/16 at 19:48; Stop 01/14/17 at 19:47 Sucralfate (Carafate Susp) 1 gm QID PO Last administered on 12/15/16 23:58; Admin Dose 1 GM; Start 12/16/16 at 02:00; Stop 01/15/17 at 01:59 Zolpidem Tartrate (Ambien Tab) 5 mg HSZ PRN PO; Start 12/15/16 at 20:00; Stop 01/14/17 at 19:59 Objective Vital Signs Date Time Temp Pulse Resp B/P Pulse Ox O2 Delivery O2 Flow Rate FiO2 12/16/16 08:00 Room Air 12/16/16 07:35 36.6 65 16 123/74 94 Room Air 12/16/16 07:12 Room Air 12/16/16 04:00 Room Air 12/16/16 03:14 36.4 61 19 102/64 93 Room Air 12/16/16 00:01 Room Air 12/15/16 23:51 37.0 65 17 115/72 93 Room Air 12/15/16 20:20 36.9 81 17 162/72 95 Room Air 12/15/16 20:14 74 14 147/68 95 12/15/16 19:35 83 26 150/76 97 Room Air 12/15/16 18:07 85 12/15/16 17:24 81 18 145/72 95 Room Air 12/15/16 14:37 69 17 160/75 98 Room Air 12/15/16 13:55 99 Room Air 12/15/16 13:55 99 Room Air 12/15/16 13:48 84 12/15/16 13:31 36.7 98 16 178/91 99 Room Air Physical Exam Comments: nad, aox3, anicteric irreg irreg, no murmurs appreciated ctab no w/r/r abd soft nt/nd +BS no LE edema Laboratory Results Last 24 Hours Test 12/15/16 13:55 12/15/16 14:30 12/15/16 20:50 12/16/16 02:46 White Blood Count 10.02 K/uL Red Blood Count 4.60 M/uL Hemoglobin 14.3 g/dL 11.8 g/dL Hematocrit 42.6 % 35.3 % Mean Corpuscular Volume 92.6 fL Mean Corpuscular Hemoglobin 31.1 pg Mean Corpuscular Hemoglobin Concent 33.6 g/dl RDW Standard Deviation 42.6 fL RDW Coefficient of Variation 12.6 % Platelet Count 234 K/uL Mean Platelet Volume 9.1 fL Prothrombin Time 10.4 SECONDS Prothromb Time International Ratio 1.0 Activated Partial Thromboplast Time 27.4 SECONDS Partial Thromboplastin Ratio 1.1 D-Dimer 1800 ug/L FEU Sodium Level 138 mmol/L Potassium Level 4.1 mmol/L Chloride Level 103 mmol/L Carbon Dioxide Level 29 mmol/L Anion Gap 6.0 mmol/L Blood Urea Nitrogen 17 mg/dl Creatinine 0.88 mg/dl Est Creatinine Clear Calc Drug Dose 85.4 ml/min Estimated GFR () 79.9 Estimated GFR (Non- 68.9 BUN/Creatinine Ratio 19.1 Random Glucose 110 mg/dl Calcium Level 9.7 mg/dl Total Bilirubin 0.8 mg/dl Aspartate Amino Transf (AST/SGOT) 18 U/L Alanine Aminotransferase (ALT/SGPT) 24 U/L Alkaline Phosphatase 86 U/L Total Creatine Kinase 109 U/L Creatine Kinase MB 1.4 ng/ml Creatine Kinase MB Ratio 1.3 Total Protein 8.5 gm/dl Albumin 4.6 gm/dl Globulin 3.9 gm/dl Albumin/Globulin Ratio 1.2 Bedside Troponin I 0.000 ng/ml Troponin I < 0.015 ng/ml < 0.015 ng/ml Test 12/16/16 10:21 Assessment and Plan 1. Chest tightness - admitting EKG NSR - troponin negative x2 - will order another EKG - appears afib on telemetry - cardiology consult - likely related to esophageal thickening 2. Esophageal thickening on CT - also has lymphadenopathy - for EGD today - keep npo, cont IVF 3. Anemia - sudden drop in Hb - could be dilutional vs lab error - repeat cbc now along with CBC - no e/o bleeding 4. Arrhythmia - check EGK, likely afib - will determine anticoagulation after repeat H/H and post EGD - cardio consult 5. dvt ppx scd
[2016-12-16 11:54] LABS: BASO % 0.3 %; BASO ABS # 0.02 K/uL (0-0.2); COMPLETE YES; EOS % 2.1 %; HEMATOCRIT 40.6 % (37-47); IG% 0.2 %; LYMPH ABS # 1.85 K/uL (1.2-3.4); MEAN CELL VOLUME 94.2 fL (80-100); MEAN CORPUSCULAR HEMOGLOBIN 30.9 pg (25-34); MEAN CORPUSCULAR HGB CONC 32.8 g/dl (32-36); MEAN PLATELET VOLUME 9.2 fL (7.4-10.4); MONO % 6.4 %; PLATELET COUNT 210 K/uL (130-400); RED BLOOD COUNT 4.31 M/uL (4.2-5.4)
--- NOTE | 2016-12-16 12:59 | PROGRESS NOTE ---
DATE: 12/16/2016 SUBJECTIVE: The patient has a little bit of palpitations in her chest. Objectively the patient was back in atrial fibrillation/flutter periodically today with variations in her blood pressure. She currently recently converted back to normal sinus rhythm but her cardiac rhythm is clearly unstable. She was scheduled for an EGD today. PHYSICAL EXAMINATION: VITAL SIGNS: Her heart rate is 65, blood pressure is 123/74 currently. IMPRESSION: The patient is having dysphagia and possible esophagitis, possible lesion in the distal esophagus. She is having unstable heart rhythm at this point and we are going to postpone our EGD for today until the bindery machine operator have a chance to evaluate her further and stabilize her vital signs and heart rhythm. If she is still in the hospital Monday hopefully will be able to proceed with an EGD at that point in time. Dr. Covarrubias will be covering for the weekend.
[2016-12-16 13:00] LABS: CALCIUM 9.1 mg/dl (8.5-10.1)
[2016-12-16 13:08] LABS: CREATININE 0.67 mg/dl (0.60-1.20)
[2016-12-16 13:09] LABS: MAGNESIUM 2.4 mg/dl (1.8-2.4)
[2016-12-16 13:10] LABS: BUN/CREATININE RATIO 13.4 (10-20)
--- NOTE | 2016-12-16 13:14 | CARDIOLOGY CONSULTATION ---
DATE OF CONSULTATION: 12/16/2016 DATE OF CONSULTATION: 12/16/2016. REFERRING PHYSICIAN: Kaci Woods M.D. CHIEF COMPLAINT: Palpitations. HISTORY OF PRESENT ILLNESS: Mrs. Carola Mendoza is a 66-year-old woman without a known cardiac history who was admitted to [facility] after suffering an episode of severe chest discomfort during eating. The patient's symptoms gradually resolved, but lasted for an extended period of time and she was admitted for investigation of possible esophageal maladies. During hospitalization, she was on telemetry, she was noted to have evidence of atrial fibrillation. The patient was unaware of any palpitations or arrhythmia. She states she is generally not aware of any irregular heartbeat, palpitations or tachycardia. She is an active woman who engages in routine exercise that involves riding a stationary bike. She denies any new limitations or symptoms associated with this activity. She does not have limiting dyspnea and she has no chest pain with exercise. She has rare episodes of dizziness sometime during changes in position. She has had 2 episodes of presyncope both of which appear to have been associated either with illness or significant dehydration. She has not suffered actual syncope. PAST MEDICAL HISTORY: Significant for: 1. Gastroesophageal reflux disease. 2. Esophageal structure. 3. Hyperlipidemia. PAST SURGICAL HISTORY: Significant for cataract surgery, history of tendon repair, cholecystectomy and appendectomy. OUTPATIENT MEDICATIONS: Included Pepcid and Ditropan. MEDICAL ALLERGIES: INCLUDE CLARITHROMYCIN, PENICILLIN, SULFA ANTIBIOTICS, LEVOFLOXACIN AND MEPERIDINE. FAMILY HISTORY: There is no family history of premature coronary disease. There is a family history of diabetes. SOCIAL HISTORY: The patient currently employed at the [employer]. She has a remote history of tobacco abuse, having quit over 30 years ago and has only social alcohol use. REVIEW OF SYSTEMS: Complete 10-system review of systems was performed and the pertinent positives are noted in the history of present illness. The remainder being negative. She generally speaking does not have difficulty with eating. She states she has not had any nausea or vomiting recently. She has had no constitutional symptoms such as fevers or chills. She denies any swelling in her lower extremities. She denies any change in her bowel or bladder habits. PHYSICAL EXAMINATION: GENERAL: She was alert and oriented, mood and affect appeared normal. She answered all questions appropriately. VITAL SIGNS: Include blood pressure 123/74 with pulse of 65. HEAD, EYES, EARS, NOSE, AND THROAT: Sclerae are anicteric. Pupils equal and reactive to light and accommodation. Extraocular movements were intact. Palpation of submandibular region did not reveal any significant lymphadenopathy. The carotids are palpable bilaterally. There are no bruits on auscultation. I did not appreciate any jugular venous distention. Thyroid is not enlarged. LUNGS: Auscultation of lungs reveal the apices to be clear. She had good air movement without use of accessory muscles. She had normal respiratory effort. There were no rales, wheezes or rhonchi. CARDIAC EXAMINATION: Revealed her to be in a regular rhythm. She had normal S1, normal S2. She did have holosystolic murmur that was best appreciated at the apex. PMI did not appear to be markedly displaced on palpation. ABDOMEN: Soft and nontender. EXTREMITIES: Evaluation both wrists revealed radial pulses that were equal in intensity. There is no evidence of cyanosis or clubbing. Evaluation of lower extremities did not reveal any significant peripheral edema. SKIN: I do not appreciate any rashes on examination today. LABORATORY STUDIES: Include a white cell count of 6.6, hemoglobin 13.3 and a platelet count of 210. Sodium is 138, potassium is 4.1, BUN was 17, creatinine was 0.8. Serial cardiac biomarkers were all less than detectable limit. Single view chest x-ray was obtained at the time of admission which did not reveal any active cardiopulmonary disease. The patient also underwent CT scan of the thoracic given her presenting complaint, which did reveal evidence of esophageal wall thickening and an enlarged lymph node near the gastroesophageal conjunction. There was no evidence of pulmonary embolus. 12-lead EKGs were obtained during her admission. Initially this represented a sinus rhythm. Second EKG did reveal what appeared to be atrial flutter, but is likely more consistent within atrial fibrillation. Review of her current telemetry reveals a return to sinus rhythm. ASSESSMENT AND PLAN: 1. Noncardiac chest pain: The patient had an extended period is fairly severe chest discomfort that is now felt to be esophageal or gastric in nature. Extended episode of this nature without elevation in cardiac biomarkers makes this unlikely to be cardiac in nature. She also has a good exercise tolerance with no symptoms of coronary insufficiency or angina with exertion. In this setting I would recommend continued primary prevention of coronary artery disease. 2. Atrial fibrillation: While EKG is consistent with an atrial flutter review of her telemetry suggests brief episodes of atrial arrhythmia and spontaneously conversion of what is more likely atrial fibrillation. The patient has no notable symptoms associated with this arrhythmia and likely has had episodes for some time without any symptoms. It is very possible that she has an element of valvular heart disease resulting in predisposition to atrial fibrillation. This will be evaluated with echocardiography. Her heart rates while in atrial fibrillation were reasonable. It is unclear whether she has higher rates at times but based on the asymptomatic nature of the arrhythmia and good rate control seen without specific rate control agents, I would not advocate empiric use of rate control medications currently. Unfortunately, her risk factors for stroke include her gender and age. These put her at a slightly higher risk of thromboembolic events and put her in a category of patients who are generally advised to consider anticoagulation for prophylaxis against stroke. Her CHADS2-VASc score is 2 and I would recommend initiation of warfarin or a novel oral anticoagulant once the possibility of occult gastrointestinal bleeding has been excluded. 3. Murmur: The patient murmur is consistent with mitral regurgitation. With mitral regurgitation and possible left atrium enlargement she would have a predisposition to atrial fibrillation. I did order an echocardiogram in order to reevaluate this today.
[2016-12-16 15:32] VITALS: BP 138/83; PULSE 86; TEMP 37.2; O2SAT 96
[2016-12-16] MEDS: OXYBUTYNIN CHLORIDE 5 MG TAB PO SCH (15:55)
[2016-12-16] MEDS: ACETAMINOPHEN 325 MG TAB PO PRN (16:00)
--- NOTE | 2016-12-16 16:11 | ECHOCARDIOGRAM REPORT ---
*NOTICE TO RECEIVING REPUBLICAN AGENCY This information is strictly Confidential and protected under [place] law. [place] law prohibits you from making any further disclosure of this information unless further disclosure is expressly permitted by the written consent of the person to whom it pertains or is authorized by law. A general authorization for the release of medical or other information is not sufficient for this purpose. Hospital accepts no responsibility if the information is made available to any other person, INCLUDING THE PATIENT. Interpretation Summary * Name: MAURICE ERNST Study Date: 12/16/2016 02:54 PM BP: 123/74 mmHg * Patient Location: .2T\S\E221\S\1 HR: 65 * : 1950 (M/d/yyyy) Gender: Female Height: 72 in * Age: 66 yrs Ethnicity: [place] Weight: 172 lb * Ordering Physician: Toy Dockery * Referring Physician: Self, Referred * Performed By: Esther Phillips RDCS * * Reason For Study: Murmurs * BSA: 2.0 m2 * -- Conclusions -- * There is borderline concentric left ventricular hypertrophy. * Left ventricular systolic function is normal. * Grade I diastolic dysfunction, (abnormal relaxation pattern). * Mild aortic regurgitation. * Right ventricular systolic pressure is normal. Procedure Details * A complete two-dimensional transthoracic echocardiogram was performed (2D, M-mode, Doppler and color flow Doppler). Left Ventricle * The left ventricle is normal in size. * There is borderline concentric left ventricular hypertrophy. * Ejection Fraction = 60-65%. * Left ventricular systolic function is normal. * Grade I diastolic dysfunction, (abnormal relaxation pattern). Right Ventricle * The right ventricle is normal in size and function. Atria * The left atrial size is normal. * Right atrial size is normal. Mitral Valve * The mitral valve is grossly normal. * Significant mitral regurgitation is absent. Tricuspid Valve * The tricuspid valve is not well visualized, but is grossly normal. * There is trace tricuspid regurgitation. * Right ventricular systolic pressure is normal. Aortic Valve * Aortic valve sclerosis mild, without significant aortic valvular stenosis. * Mild aortic regurgitation. Great Vessels * The aortic root is normal size. Pericardium/Pleural * There is no pericardial effusion. Great Vessels * Normal inferior vena cava diameter and respiratory variation suggests normal central venous pressure. MMode 2D Measurements and Calculations IVSd 1.2 cm LVIDd 4.3 cm LVIDs 2.7 cm LVPWd 1.2 cm IVS/LVPW 1.0 FS 37.6 % EDV(Teich) 81.6 ml ESV(Teich) 26.1 ml EF(Teich) 68.0 % EDV(cubed) 77.7 ml ESV(cubed) 18.9 ml EF(cubed) 75.7 % LV mass(C)d 189.1 grams LV mass(C)dI 94.6 grams/m\S\2 SV(Teich) 55.5 ml SI(Teich) 27.8 ml/m\S\2 SV(cubed) 58.8 ml SI(cubed) 29.4 ml/m\S\2 Ao root diam 3.2 cm Ao root area 7.9 cm\S\2 LA dimension 3.7 cm asc Aorta Diam 2.9 cm LA/Ao 1.2 LVOT diam 2.0 cm LVOT area 3.3 cm\S\2 LVAd ap4 22.8 cm\S\2 LVLd ap4 6.9 cm EDV(MOD-sp4) 60.7 ml EDV(sp4-el) 63.6 ml LVAs ap4 12.1 cm\S\2 LVLs ap4 5.6 cm ESV(MOD-sp4) 23.9 ml ESV(sp4-el) 22.5 ml EF(MOD-sp4) 60.5 % EF(sp4-el) 64.6 % LVAd ap2 24.1 cm\S\2 LVLd ap2 7.0 cm EDV(MOD-sp2) 69.9 ml EDV(sp2-el) 70.1 ml LVAs ap2 12.5 cm\S\2 LVLs ap2 4.9 cm ESV(MOD-sp2) 26.8 ml ESV(sp2-el) 27.3 ml EF(MOD-sp2) 61.7 % EF(sp2-el) 61.1 % LVLd %diff 1.6 % EDV(MOD-bp) 64.5 ml LVLs %diff -13.37 % ESV(MOD-bp) 25.6 ml EF(MOD-bp) 60.3 % SV(MOD-sp4) 36.7 ml SI(MOD-sp4) 18.4 ml/m\S\2 SV(MOD-sp2) 43.1 ml SI(MOD-sp2) 21.6 ml/m\S\2 SV(MOD-bp) 38.9 ml SI(MOD-bp) 19.5 ml/m\S\2 SV(sp4-el) 41.1 ml SI(sp4-el) 20.5 ml/m\S\2 SV(sp2-el) 42.8 ml SI(sp2-el) 21.4 ml/m\S\2 Doppler Measurements and Calculations MV E max stephanie 79.8 cm/sec MV A max stephanie 98.1 cm/sec MV E/A 0.81 MV dec time 0.23 sec Ao V2 max 138.0 cm/sec Ao max PG 7.6 mmHg Ao max PG (full) 2.6 mmHg BAIRON(V,A) 2.7 cm\S\2 BAIRON(V,D) 2.7 cm\S\2 LV V1 max PG 5.1 mmHg LV V1 max 112.4 cm/sec PA V2 max 105.9 cm/sec PA max PG 4.5 mmHg PA acc slope 373.4 cm/sec\S\2 PA acc time 0.16 sec TR max stephanie 250.8 cm/sec PA pr(Accel) 8.2 mmHg
[2016-12-16 19:21] VITALS: BP 106/66; PULSE 68; TEMP 36.6; O2SAT 96
[2016-12-16] MEDS: SODIUM CHLORIDE 0.9% 1000ML 1,000 ML IV SCH (21:28)
[2016-12-16] MEDS ORDERED: NURSING VERBAL MED ORDER ONE (21:30)
[2016-12-16 23:51] VITALS: BP 137/73; PULSE 63; TEMP 37; O2SAT 95
[2016-12-17 04:02] VITALS: BP 126/72; PULSE 58; TEMP 36.9; O2SAT 95
[2016-12-17 07:30] VITALS: BP 129/63; PULSE 56; TEMP 36.5; O2SAT 98
[2016-12-17] MEDS: PANTOprazole INJ 40 MG in SYRINGE 0 ML IV SCH ×2 (09:51→21:06)
[2016-12-17] MEDS: SUCRALFATE 1 GM/10 ML UDC PO SCH ×4 (09:51→21:06)
[2016-12-17] MEDS ORDERED: NURSING VERBAL MED ORDER ONE (10:15)
[2016-12-17] MEDS: OXYBUTYNIN CHLORIDE 5 MG TAB PO SCH (10:27)
[2016-12-17] MEDS ORDERED: POLYETHYLENE (MIRALAX) 17 GM PACK PO PRN (10:30)
[2016-12-17 11:14] VITALS: BP 145/86; PULSE 56; TEMP 36.8; O2SAT 97
--- NOTE | 2016-12-17 11:29 | Progress Note ---
Subjective Date of Service: Dec 17, 2016. Subjective Pt evaluation today including: conversation w/ patient, physical exam, lab review, review of studies, review of inpatient medication list NO further episodes of arrhythmias on tele. EGD postponed until Monday. No chest pain, no sob. Tolerating po intake now without n/v. Afebrile. Problem List Medical Problems: (1) Anemia Status: Acute (2) Diarrhea Status: Acute (3) Esophageal thickening Status: Acute (4) Influenza A Status: Acute Review of Systems All Other Systems: Reviewed and Negative Medications Acetaminophen (Tylenol Tab) 650 mg Q4H PRN PO Last administered on 12/16/16 16:00; Admin Dose 650 MG; Start 12/15/16 at 20:00; Stop 01/14/17 at 19:59 Al Hydrox/Mg Hydrox/Simethicone (Maalox Max Susp) 15 ml Q4H PRN PO; Start 12/15 at 20:00; Stop 01/14/17 at 19:59 Ioversol (Optiray 320) 111 ml UD PRN IV; Start 12/15/16 at 16:00; Stop 12/19/16 at 15:59 Miscellaneous (Iv Fluids Completed) 1 ea PRN PRN N/A; Start 12/15/16 at 20:30; Stop 12/15/17 at 20:29 Morphine Sulfate 2 mg 2 mg Q3H PRN IV Last administered on 12/15/16 23:59; Admin Dose 2 MG; Start 12/15/16 at 20:00; Stop 12/29/16 at 19:59 Ondansetron HCl (Zofran Inj) 4 mg Q6H PRN IV; Start 12/15/16 at 20:00; Stop at 19:59 Oxybutynin Chloride (Ditropan Tab) 5 mg QAM PO Last administered on 12/17/16 10 :27; Admin Dose 5 MG; Start 12/16/16 at 09:00; Stop 01/15/17 at 08:59 Pantoprazole Sodium/Syringe (Protonix Inj/ Syringe) 10 ml @ 5 mls/min BID@0900, 2100 IV Last administered on 12/17/16 09:51; Admin Dose 5 MLS/MIN; Start at 09:00; Stop 01/15/17 at 08:59 Polyethylene (Miralax Powder Packet) 17 gm BID PRN PO Last administered on 12/17 10:33; Admin Dose 17 GM; Start 12/17/16 at 10:30; Stop 01/16/17 at 10:29 Sucralfate (Carafate Susp) 1 gm QID PO Last administered on 12/17/16 13:10; Admin Dose 1 GM; Start 12/16/16 at 02:00; Stop 01/15/17 at 01:59 Zolpidem Tartrate (Ambien Tab) 5 mg HSZ PRN PO; Start 12/15/16 at 20:00; Stop 01/14/17 at 19:59 Objective Vital Signs Date Time Temp Pulse Resp B/P Pulse Ox O2 Delivery O2 Flow Rate FiO2 12/17/16 11:14 36.8 56 18 145/86 97 12/17/16 08:00 Room Air 12/17/16 07:30 36.5 56 18 129/63 98 12/17/16 04:02 36.9 58 14 126/72 95 Room Air 12/17/16 04:00 Room Air 12/16/16 23:59 Room Air 12/16/16 23:51 37.0 63 16 137/73 95 Room Air 12/16/16 20:00 Room Air 12/16/16 19:21 36.6 68 16 106/66 96 Room Air 12/16/16 16:00 Room Air 12/16/16 15:32 37.2 86 18 138/83 96 Room Air 12/16/16 12:00 Room Air Physical Exam Comments: nad, aox3 s1 s2 rrr, unable to appreciate murmur abd soft nt/nd +BS no LE edema Assessment and Plan 1. Dysphagia - Esophageal thickening on CT - also has lymphadenopathy - for EGD on Monday - diet at tolerated for now, stop IVF 2. Aflutter - paroxysmal - CHADSVASC of 2, discussed anticoagulation, which will also be dependent on EGD findings - will revisit - no additional meds needed at this time 3. Anemia - h/h stable 4. dvt ppx scd
--- NOTE | 2016-12-17 12:56 | GASTROENTEROLOGY PROGRESS NOTE ---
DATE: 12/17/2016 HISTORY OF PRESENT ILLNESS: The patient was admitted for dysphagia with chest discomfort and found to have an abnormal CT scan with significant inflammation and a junctional lymph node. The patient had planned upper endoscopy yesterday on Monday; however, developed abnormal rhythm and atrial fibrillation and this was postponed. Clinically, the patient is doing well, has no abdominal pain, nausea or vomiting and is tolerating a liquid diet. She did undergo an echocardiogram yesterday and this revealed normal LV function, grade 1 diastolic dysfunction, normal right ventricle and atrial sizes. Mitral valve is grossly normal. Left ventricle is normal in size with borderline concentric LVH and ejection fraction of 60%. CURRENT MEDICATIONS: Include MiraLax powder, Ditropan, pantoprazole IV, sucralfate q.i.d., acetaminophen, Ambien, Zofran, morphine p.r.n. and Maalox Max suspension. LABORATORY DATA: Yesterday, white count 6.6, hemoglobin 13.3, BUN and creatinine were 9 and 0.7, normal potassium. REVIEW OF SYSTEMS: Otherwise noncontributory. PHYSICAL EXAMINATION: Today, VITAL SIGNS: Stable. She is afebrile, heart rate 56, blood pressure 145/86, respirations 18. GENERAL: The patient is awake, alert, oriented x3. HEENT: Sclerae are anicteric, conjunctiva moist. Oral mucosa moist. HEART: Normal S1, S2. LUNGS: Clear to auscultation. ABDOMEN: Soft, flat, nontender, nondistended with good bowel sounds. EXTREMITIES: Without edema. RECTAL: Deferred. IMPRESSION: The patient with symptoms of heartburn and dysphagia with inflammatory features on CT scan in the esophagus and a 15 mm lymph node near the esophagogastric junction. There is a hiatal hernia with diffuse wall thickening. The plan is for upper endoscopy on Monday afternoon with Dr. Sweeney for assessment and sampling of the esophagus as needed to exclude esophagitis, any plaques, nodules or lesions. At some point, a repeat cross-sectional imaging once the presumed esophagitis has been treated and it is prudent. This can be either with repeat CT imaging or endoscopic ultrasound. We will continue to follow. All questions answered. Thank you for allowing me to participate in this patient's care.
[2016-12-17 16:35] VITALS: BP 134/78; PULSE 60; TEMP 37; O2SAT 97
[2016-12-17 19:36] VITALS: BP 136/66; PULSE 55; TEMP 36.9; O2SAT 99
[2016-12-17 23:45] VITALS: BP 124/77; PULSE 64; TEMP 37; O2SAT 96
[2016-12-18 03:32] VITALS: BP 146/76; PULSE 60; TEMP 36.6; O2SAT 96
[2016-12-18 07:25] VITALS: BP 147/85; PULSE 52; TEMP 36.9; O2SAT 96
[2016-12-18] MEDS: PANTOprazole INJ 40 MG in SYRINGE 0 ML IV SCH ×2 (07:47→20:58)
[2016-12-18] MEDS: SUCRALFATE 1 GM/10 ML UDC PO SCH ×4 (07:48→20:57)
[2016-12-18] MEDS: OXYBUTYNIN CHLORIDE 5 MG TAB PO SCH (07:48)
--- NOTE | 2016-12-18 11:13 | Progress Note ---
Subjective Date of Service: Dec 18, 2016. Subjective Pt evaluation today including: conversation w/ patient, physical exam, lab review, review of studies, review of inpatient medication list Leaning against long-term anticoagulation and will likely go with aspirin, pending EGD findings. No further arrhythmias on telemetry. No chest pain, no sob. TOlerating diet. No urinary or abd symptoms. Problem List Medical Problems: (1) Anemia Status: Acute (2) Diarrhea Status: Acute (3) Esophageal thickening Status: Acute (4) Influenza A Status: Acute Review of Systems All Other Systems: Reviewed and Negative Medications Acetaminophen (Tylenol Tab) 650 mg Q4H PRN PO Last administered on 12/16/16 16:00; Admin Dose 650 MG; Start 12/15/16 at 20:00; Stop 01/14/17 at 19:59 Al Hydrox/Mg Hydrox/Simethicone (Maalox Max Susp) 15 ml Q4H PRN PO; Start 12/15 at 20:00; Stop 01/14/17 at 19:59 Ioversol (Optiray 320) 111 ml UD PRN IV; Start 12/15/16 at 16:00; Stop 12/19/16 at 15:59 Miscellaneous (Iv Fluids Completed) 1 ea PRN PRN N/A; Start 12/15/16 at 20:30; Stop 12/15/17 at 20:29 Morphine Sulfate 2 mg 2 mg Q3H PRN IV Last administered on 12/15/16 23:59; Admin Dose 2 MG; Start 12/15/16 at 20:00; Stop 12/29/16 at 19:59 Ondansetron HCl (Zofran Inj) 4 mg Q6H PRN IV; Start 12/15/16 at 20:00; Stop at 19:59 Oxybutynin Chloride (Ditropan Tab) 5 mg QAM PO Last administered on 12/18/16 07 :48; Admin Dose 5 MG; Start 12/16/16 at 09:00; Stop 01/15/17 at 08:59 Pantoprazole Sodium/Syringe (Protonix Inj/ Syringe) 10 ml @ 5 mls/min BID@0900, 2100 IV Last administered on 12/18/16 07:47; Admin Dose 5 MLS/MIN; Start at 09:00; Stop 01/15/17 at 08:59 Polyethylene (Miralax Powder Packet) 17 gm BID PRN PO Last administered on 12/17 10:33; Admin Dose 17 GM; Start 12/17/16 at 10:30; Stop 01/16/17 at 10:29 Sucralfate (Carafate Susp) 1 gm QID PO Last administered on 12/18/16 12:54; Admin Dose 1 GM; Start 12/16/16 at 02:00; Stop 01/15/17 at 01:59 Zolpidem Tartrate (Ambien Tab) 5 mg HSZ PRN PO; Start 12/15/16 at 20:00; Stop 01/14/17 at 19:59 Objective Vital Signs Date Time Temp Pulse Resp B/P Pulse Ox O2 Delivery O2 Flow Rate FiO2 12/18/16 07:25 36.9 52 16 147/85 96 Room Air 12/18/16 04:00 Room Air 12/18/16 03:32 36.6 60 18 146/76 96 Room Air 12/17/16 23:59 Room Air 12/17/16 23:45 37.0 64 18 124/77 96 Room Air 12/17/16 20:00 Room Air 12/17/16 19:36 36.9 55 20 136/66 99 Room Air 12/17/16 16:35 37.0 60 20 134/78 97 Room Air 12/17/16 16:00 Room Air 12/17/16 12:00 Room Air 12/17/16 11:14 36.8 56 18 145/86 97 Physical Exam Comments: nad, aox3 anicteric, coherent and fluent speech s1 s2 rrr, no murmurs appreciated ctab no w/r/r abd soft nt/nd +BS no LE edema Assessment and Plan 1. Dysphagia - Esophageal thickening on CT - also has lymphadenopathy - for EGD on Monday - diet at tolerated for now, stop IVF 2. Aflutter - paroxysmal, no furhter episodes on tele - CHADSVAS of 2, discussed anticoagulation, which will also be dependent on EGD findings - will revisit - no additional meds needed at this time 3. Anemia - h/h stable 4. BP elevation - cont to monitor - persistently above >140 during the day - will start low-dose amlodipine and monitor 5. dvt ppx scd
[2016-12-18 11:37] VITALS: BP 140/73; PULSE 54; TEMP 36.9; O2SAT 98
[2016-12-18] MEDS ORDERED: AMLODIPINE BESYLATE 5 MG TAB PO ONE (15:00)
[2016-12-18 15:53] VITALS: BP 137/68; PULSE 50; TEMP 37.1; O2SAT 98
[2016-12-18 18:55] VITALS: BP 137/96; PULSE 59; TEMP 36.9; O2SAT 99
[2016-12-18 23:26] VITALS: BP 136/78; PULSE 58; TEMP 36.9; O2SAT 97
[2016-12-19] VITALS (9 sets, daily range): BP systolic 135–158; BP diastolic 60–83; PULSE 54–66; TEMP 36.6–36.7; O2SAT 96–99
[2016-12-19] MEDS: SUCRALFATE 1 GM/10 ML UDC PO SCH ×2 (06:01→11:00)
[2016-12-19 07:39] LABS: BASO % 0.5 %; BASO ABS # 0.02 K/uL (0-0.2); COMPLETE YES; EOS % 4.3 %; HEMATOCRIT 38.3 % (37-47); IG% 0.3 %; LYMPH % 41.4 %; LYMPH ABS # 1.63 K/uL (1.2-3.4); MEAN CELL VOLUME 93.9 fL (80-100); MEAN CORPUSCULAR HEMOGLOBIN 31.1 pg (25-34); MEAN CORPUSCULAR HGB CONC 33.2 g/dl (32-36); MEAN PLATELET VOLUME 9.4 fL (7.4-10.4); MONO % 9.4 %; NEUT % 44.1 %; PLATELET COUNT 217 K/uL (130-400); RED BLOOD COUNT 4.08 M/uL (4.2-5.4); WHITE BLOOD COUNT 3.94 K/uL (4.8-10.8)
[2016-12-19 07:45] LABS: PROTHROMBIN TIME (PATIENT) 10.2 SECONDS (9.0-12.0)
--- NOTE | 2016-12-19 07:56 | GASTROENTEROLOGY PROGRESS NOTE ---
DATE: 12/18/2016 SUBJECTIVE: The patient did well overnight, tolerated oral intake without chest pain, shortness of breath or dysphagia. The patient's vital signs: Blood pressure 140/73, respirations 16, heart rate 54, afebrile at 36.9 and saturations 98% on room air. The patient was found to have paroxysmal atrial flutter. We will also plan for upper endoscopy tomorrow. Consideration is being made for eventual anticoagulant therapy given the rhythm disturbance, although this initiation will be deferred until GI evaluation is completed. CURRENT ALLERGIES: INCLUDE CLARITHROMYCIN, LEVOFLOXACIN, MEPERIDINE, PENICILLIN, AND SULFAS. CURRENT MEDICATIONS: Include MiraLax, Ditropan, pantoprazole, Carafate, morphine, and Tylenol. Electrocardiogram revealed sinus rhythm on December 16. REVIEW OF SYSTEMS: Review of systems is otherwise noncontributory. The patient reports a colonoscopy in the past, although it is unclear when her followup is due. This may be in 2019. Although, I do not see a prior colonoscopy at [facility]. PHYSICAL EXAMINATION: GENERAL: The patient is awake, alert and oriented x3. VITAL SIGNS: Today described above. HEENT: Sclerae are anicteric. Conjunctiva moist. Oral mucosa moist. HEART: Normal S1 and S2. ABDOMEN: Soft, flat, nontender, and nondistended with good bowel sounds. EXTREMITIES: Without edema. IMPRESSION: I spoke with the patient at length today regarding the indications for her EGD given the CT findings of significant inflammation. At some point, assessment for her lymph node will be required by either cross sectional imaging or US. In addition, upper endoscopy will be performed tomorrow prior to any consideration for anticoagulation with careful inspection for nodules, ulcers or other features of inflammation. If the patient is due for colonoscopy within the next several months, it may be reasonable to consider this prior to initiating anticoagulation therapy if this ultimately is planned. Her hemoglobin during her hospitalization is essentially stable and normal with a normal MCV of 94 and hemoglobin of 13.3 on December 16. Further recommendation is to follow once upper endoscopy completed. Please continue acid blocking medications as prescribed. 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 We also spoke at length regarding dietary and lifestyle changes that would be advantageous to reducing reflux including avoidance of caffeinated carbonated beverages, chocolates, peppermint and late night eating. All questions answered. MTDD
[2016-12-19 08:34] LABS: BUN/CREATININE RATIO 19.4 (10-20); CALCIUM 8.9 mg/dl (8.5-10.1); CREATININE 0.67 mg/dl (0.60-1.20); MAGNESIUM 2.3 mg/dl (1.8-2.4)
[2016-12-19] MEDS ORDERED: AMLODIPINE BESYLATE 5 MG TAB PO SCH (09:00)
[2016-12-19] MEDS: OXYBUTYNIN CHLORIDE 5 MG TAB PO SCH (09:50)
[2016-12-19] MEDS: PANTOprazole INJ 40 MG in SYRINGE 0 ML IV SCH (09:51)
--- NOTE | 2016-12-19 14:18 | Progress Note ---
Subjective Date of Service: December 19, 2016. Subjective Pt evaluation today including: conversation w/ patient, physical exam, chart review, lab review, review of studies, review of inpatient medication list Kept NPO for tentative procedure No acute events overnight No chest pain or reflux sensation Problem List Medical Problems: (1) Anemia Status: Acute (2) Diarrhea Status: Acute (3) Esophageal thickening Status: Acute (4) Influenza A Status: Acute Review of Systems Constitutional: No chills, No fever Respiratory: No cough, No shortness of breath, No sputum, No wheezing Cardiac: No chest pain, No orthopnea Abdomen: No diarrhea, No nausea, No pain, No vomiting Musculoskeletal: No joint pain, No muscle pain Female : No dysuria, No urinary frequency Objective Vital Signs Date Time Temp Pulse Resp B/P Pulse Ox O2 Delivery O2 Flow Rate FiO2 12/19/16 11:06 36.7 64 18 147/82 97 Room Air 12/19/16 07:26 36.6 54 18 143/83 97 Room Air 12/19/16 07:13 36.6 66 18 158/82 96 Room Air 12/19/16 04:00 Room Air 12/19/16 03:23 36.6 66 18 158/82 96 Room Air 12/18/16 23:59 Room Air 12/18/16 23:26 36.9 58 18 136/78 97 Room Air 12/18/16 20:00 Room Air 12/18/16 18:55 36.9 59 20 137/96 99 12/18/16 16:00 Room Air 12/18/16 15:53 37.1 50 20 137/68 98 Room Air Physical Exam General Appearance: WD/WN, no apparent distress Neck: supple, no adenopathy Respiratory/Chest: lungs clear, normal breath sounds Cardiovascular: no edema, no gallop Abdomen: non tender, soft Neurologic/Psychiatric: alert, oriented x 3 Laboratory Results Last 24 Hours Test 12/19/16 06:54 White Blood Count 3.94 K/uL Red Blood Count 4.08 M/uL Hemoglobin 12.7 g/dL Hematocrit 38.3 % Mean Corpuscular Volume 93.9 fL Mean Corpuscular Hemoglobin 31.1 pg Mean Corpuscular Hemoglobin Concent 33.2 g/dl Platelet Count 217 K/uL Mean Platelet Volume 9.4 fL Neutrophils (%) (Auto) 44.1 % Lymphocytes (%) (Auto) 41.4 % Monocytes (%) (Auto) 9.4 % Eosinophils (%) (Auto) 4.3 % Basophils (%) (Auto) 0.5 % Neutrophils # (Auto) 1.74 K/uL Lymphocytes # (Auto) 1.63 K/uL Monocytes # (Auto) 0.37 K/uL Eosinophils # (Auto) 0.17 K/uL Basophils # (Auto) 0.02 K/uL RDW Standard Deviation 43.9 fL RDW Coefficient of Variation 12.8 % Immature Granulocyte % (Auto) 0.3 % Immature Granulocyte # (Auto) 0.01 K/uL Prothrombin Time 10.2 SECONDS Prothromb Time International Ratio 1.0 Sodium Level 142 mmol/L Potassium Level 4.0 mmol/L Chloride Level 106 mmol/L Carbon Dioxide Level 27 mmol/L Anion Gap 9.0 mmol/L Blood Urea Nitrogen 13 mg/dl Creatinine 0.67 mg/dl Est Creatinine Clear Calc Drug Dose 112.2 ml/min Estimated GFR () 106.9 Estimated GFR (Non- 92.2 BUN/Creatinine Ratio 19.4 Random Glucose 101 mg/dl Calcium Level 8.9 mg/dl Magnesium Level 2.3 mg/dl Assessment and Plan 1. Dysphagia - Esophageal thickening on CT - also has lymphadenopathy - for EGD on 12/20, appreciate GI recs, cont PPI - diet at tolerated for now, stop IVF 2. Aflutter - paroxysmal, no furhter episodes on tele - CHADSVASC of 2, discussed anticoagulation, which will also be dependent on EGD findings - no additional meds needed at this time 3. Anemia - h/h stable 4. BP elevation - cont to monitor - persistently above >140 during the day - will start low-dose amlodipine and monitor 5. dvt ppx scd
--- NOTE | 2016-12-19 14:43 | Endo History and Physical ---
History & Physical Date of Service: December 19, 2016. Chief Complaint: abnormal CT of the esophagus Referring Physician: Dr. King History of Present Illness For EGD Past Medical History Reflux Past Surgical History Hx Cardiac Surgery: No Hx Internal Defibrillator: No Hx Pacemaker: No Hx Abdominal Surgery: Yes ( X2, MARY 2009) Hx Post-Op Nausea and Vomiting: No Hx Cancer Surgery: No Hx Thoracic Surgery: No Hx Orthopedic: Yes (RT KNEE ARTHROSCOPY, RT FOOT TENDON SURGERY 2008) Hx Urinary Tract Surgery: No Social History Smoking Status: Never Smoker Hx Substance Use: No Hx Alcohol Use: Yes (2 GLASSES 2 NIGHTS A WEEK WINE, SCOTCH, GIN) Allergies Coded Allergies: Clarithromycin (Verified Allergy, Severe, SHORTNESS OF BREATH, ITCH, ) Penicillins (Verified Allergy, Intermediate, HIVES, 12/15/16) Sulfa Antibiotics (Verified Allergy, Intermediate, hives, 12/15/16) Levofloxacin (Verified Allergy, Mild, SKIN CRAWLING FELLING, 12/15/16) Meperidine (Verified Adverse Reaction, Mild, HEADACHES, 12/15/16) Current Medications Reported Home Medications Medications Dose Route/Sig Max Daily Dose Days Date Category Motrin (Ibuprofen) 400 Mg Tab 400 Mg PO Q6H PRN 12/15/16 Reported Pepcid (Famotidine) 20 Mg Tab 40 Mg PO UD 12/15/16 Reported Ranitidine HCl 150 Mg Tab 150 Mg PO UD PRN 12/15/16 Reported One Daily 50 Plus (Multiple Vitamins W/ Minerals) 1 Tab Tab 1 Tab PO QAM 04/28/14 Reported Vitamin D3 (Cholecalciferol) 1,000 Inter.unit Tab 1,000 Inter.unit PO QAM 04/28/14 Reported Ditropan (Oxybutynin Chloride) 5 Mg Tab 5 Mg PO QAM 04/28/14 Reported Vital Signs Weight (Kilograms): 102.600 Height (Feet): 6 Height (Inches): 0.00 Date Time Temp Pulse Resp B/P Pulse Ox O2 Delivery O2 Flow Rate FiO2 12/19/16 11:06 36.7 64 18 147/82 97 Room Air 12/19/16 07:26 36.6 54 18 143/83 97 Room Air 12/19/16 07:13 36.6 66 18 158/82 96 Room Air 12/19/16 04:00 Room Air 12/19/16 03:23 36.6 66 18 158/82 96 Room Air 12/18/16 23:59 Room Air 12/18/16 23:26 36.9 58 18 136/78 97 Room Air 12/18/16 20:00 Room Air 12/18/16 18:55 36.9 59 20 137/96 99 12/18/16 16:00 Room Air 12/18/16 15:53 37.1 50 20 137/68 98 Room Air Physical Exam General Appearance: WD/WN Respiratory/Chest: Respiratory effort: no dyspnea Cardiovascular: Heart Auscultation: RRR Abdomen: Inspection & Palpation: soft Assessment and Plan Abnormal CT for EGD
--- NOTE | 2016-12-19 15:07 | Discharge Instructions ---
Endoscopy Patient Instructions Date / Procedure(s) Performed December 19, 2016. EGD Allergy Information Coded Allergies: Clarithromycin (Verified Allergy, Severe, SHORTNESS OF BREATH, ITCH, ) Penicillins (Verified Allergy, Intermediate, HIVES, 12/15/16) Sulfa Antibiotics (Verified Allergy, Intermediate, hives, 12/15/16) Levofloxacin (Verified Allergy, Mild, SKIN CRAWLING FELLING, 12/15/16) Meperidine (Verified Adverse Reaction, Mild, HEADACHES, 12/15/16) Discharge Date / Findings December 19, 2016. Esophageal ulcer Medication Instructions Restart Stopped Medication(s): Current Inpatient Medications Medications (Trade) Dose Ordered Sig/Jose Route Start Time Stop Time Status Last Admin Dose Admin Ioversol (Optiray 320) 111 ml UD PRN IV 12/15/16 16:00 12/19/16 15:59 Acetaminophen (Tylenol Tab) 650 mg Q4H PRN PO 12/15/16 20:00 01/14/17 19:59 12/16/16 16:00 650 MG Al Hydrox/Mg Hydrox/Simethicone (Maalox Max Susp) 15 ml Q4H PRN PO 12/15/16 20:00 01/14/17 19:59 Zolpidem Tartrate (Ambien Tab) 5 mg HSZ PRN PO 12/15/16 20:00 01/14/17 19:59 Ondansetron HCl (Zofran Inj) 4 mg Q6H PRN IV 12/15/16 20:00 01/14/17 19:59 Oxybutynin Chloride (Ditropan Tab) 5 mg QAM PO 12/16/16 09:00 01/15/17 08:59 12/19/16 09:50 5 MG Morphine Sulfate 2 mg 2 mg Q3H PRN IV 12/15/16 20:00 12/29/16 19:59 12/15/16 23:59 2 MG Pantoprazole Sodium/Syringe (Protonix Inj/ Syringe) 10 ml @ 5 mls/min BID@0900,2100 IV 12/16/16 09:00 01/15/17 08:59 12/19/16 09:51 5 MLS/MIN Miscellaneous (Iv Fluids Completed) 1 ea PRN PRN N/A 12/15/16 20:30 12/15/17 20:29 Polyethylene (Miralax Powder Packet) 17 gm BID PRN PO 12/17/16 10:30 01/16/17 10:29 12/17/16 10:33 17 GM Amlodipine Besylate (Norvasc Tab) 2.5 mg QAM PO 12/19/16 09:00 01/18/17 08:59 12/19/16 09:51 2.5 MG Sucralfate (Carafate Susp) 1 gm ACHS PO 12/18/16 21:00 01/17/17 20:59 12/19/16 06:01 1 GM Current Inpatient Medications Medications (Trade) Dose Ordered Sig/Jose Route Start Time Stop Time Status Last Admin Dose Admin Ioversol (Optiray 320) 111 ml UD PRN IV 12/15/16 16:00 12/19/16 15:59 Acetaminophen (Tylenol Tab) 650 mg Q4H PRN PO 12/15/16 20:00 01/14/17 19:59 12/16/16 16:00 650 MG Al Hydrox/Mg Hydrox/Simethicone (Maalox Max Susp) 15 ml Q4H PRN PO 12/15/16 20:00 01/14/17 19:59 Zolpidem Tartrate (Ambien Tab) 5 mg HSZ PRN PO 12/15/16 20:00 01/14/17 19:59 Ondansetron HCl (Zofran Inj) 4 mg Q6H PRN IV 12/15/16 20:00 01/14/17 19:59 Oxybutynin Chloride (Ditropan Tab) 5 mg QAM PO 12/16/16 09:00 01/15/17 08:59 12/19/16 09:50 5 MG Morphine Sulfate 2 mg 2 mg Q3H PRN IV 12/15/16 20:00 12/29/16 19:59 12/15/16 23:59 2 MG Pantoprazole Sodium/Syringe (Protonix Inj/ Syringe) 10 ml @ 5 mls/min BID@0900,2100 IV 12/16/16 09:00 01/15/17 08:59 12/19/16 09:51 5 MLS/MIN Miscellaneous (Iv Fluids Completed) 1 ea PRN PRN N/A 12/15/16 20:30 12/15/17 20:29 Polyethylene (Miralax Powder Packet) 17 gm BID PRN PO 12/17/16 10:30 01/16/17 10:29 12/17/16 10:33 17 GM Amlodipine Besylate (Norvasc Tab) 2.5 mg QAM PO 12/19/16 09:00 01/18/17 08:59 12/19/16 09:51 2.5 MG Sucralfate (Carafate Susp) 1 gm ACHS PO 12/18/16 21:00 01/17/17 20:59 12/19/16 06:01 1 GM Provider Instructions Activity Restrictions - No exercising or heavy lifting for 24 hours. - Do not drink alcohol the day of the procedure. - Do not drive a car or operate machinery until the day after the procedure. - Do not make any important decisions or sign important papers in 24 hours after the procedure. Following Day: - Return to full activity which may include returning to work/school. Diet Start your diet with liquids and light foods (jello, soup, juice, toast). Then eat your usual diet if not nauseated. Treatment For Common After Affects For mild abdominal pain, bloating, or excessive gas: - Rest - Eat lightly - Lie on right side Follow-Up Information Follow-up with as scheduled Anesthesia Information What You Should Know You have had a procedure that required some medicine to reduce anxiety and discomfort. This treatment is called moderate sedation. After receiving the treatment, you may be sleepy, but you will be able to breathe on your own. The effects of the treatment may last for several hours. Follow these instructions along with Activity/Diet recommendations noted above: * Do NOT do anything where dizziness or clumsiness would be dangerous. * Rest quietly at home today, then you can be up and about tomorrow. * Have a responsible person stay with you the rest of today. * You may have had an I.V. today. If so, you may take the dressing off later today. Recommendations Call your doctor if: * Trouble breathing * Continuous vomiting for more than 24 hours * Temperature above 101 degrees * Severe abdominal pain or bloating * Pain not relieved by pain medicine ordered * There is increased drainage or redness from any incision * A large amount of rectal bleeding greater than 2-3 tablespoons. (If you had a polyp/s removed or have hemorrhoids, a small amount of blood - from the rectum is to be expected.) * You have any unanswered questions or concerns. IN THE EVENT OF A SERIOUS EMERGENCY, GO TO THE NEAREST EMERGENCY ROOM Your discharge instructions were prepared by provider Braxton Sweeney. Patient Instructions Signature Page [place] [place] Patient (or Guardian) Signature/Date: I have read and understand the instructions given to me by my caregivers. Caregiver/RN/Doctor Signature/Date: The above-named patient and/or guardian has received patient instructions on this date. + Original Patient Signature Page (only) stays with chart. Please make copy for patient.
--- NOTE | 2016-12-19 15:16 | GI REPORT ---
Procedure Date: 12/19/2016 2:57 PM Procedure: Upper GI endoscopy Indications: Dysphagia, Abnormal CT of the GI tract Medicines: Propofol total dose 200 mg IV, Lidocaine 40 mg IV Complications: No immediate complications. Estimated Blood Loss: Estimated blood loss was minimal. Procedure: Pre-Anesthesia Assessment: - Prior to the procedure, a History and Physical was performed, and patient medications, allergies and sensitivities were reviewed. The patient's tolerance of previous anesthesia was reviewed. - The risks and benefits of the procedure and the sedation options and risks were discussed with the patient. All questions were answered and informed consent was obtained. After obtaining informed consent, the endoscope was passed under direct vision. Throughout the procedure, the patient's blood pressure, pulse, and oxygen saturations were monitored continuously. The scope was introduced through the mouth, and advanced to the second part of duodenum. The upper GI endoscopy was accomplished without difficulty. The patient tolerated the procedure well. Findings: One linear esophageal ulcer with no bleeding and no stigmata of recent bleeding was found. The lesion was 3 mm in largest dimension. Biopsies were taken with a cold forceps for histology. Estimated blood loss was minimal. A small hiatus hernia was present. The examined duodenum was normal. Impression: - Non-bleeding esophageal ulcer. Biopsied. - Small hiatus hernia. - Normal examined duodenum. Recommendation: - [facility] patient to [facility] care. - Await pathology results. Braxton Sweeney M.D. Braxton Sweeney MD 12/19/2016 3:15:58 PM This report has been signed electronically. Note Initiated On: 12/19/2016 2:57 PM I attest to the content of the Intraoperative Record and orders documented therein, exceptions below
[2016-12-19] MEDS ORDERED: PROPOFOL IV EMULSION 10 MG/ML 20 ML VIAL IV ONE (15:25)
[2016-12-19] MEDS ORDERED: LIDOCAINE HCL 2% 2 ML VIAL (20MG/ML) ONE (15:25)
--- NOTE | 2016-12-19 15:40 | GASTROENTEROLOGY PROGRESS NOTE ---
DATE: 12/19/2016 DATE: 12/19/2016. The patient presented to the endoscopy center today for upper endoscopy for dysphagia and abnormal CT scan with esophageal thickening and an enlarged lymph node in the paraesophageal area. The patient's endoscopy showed a small hiatal hernia and there was in the mid to distal esophagus a 5 cm long linear ulcer with heaped up edge. This was biopsied. The remaining stomach and duodenum were normal. This lesion appeared to be linear scrape in the esophagus. Biopsies are pending. Further evaluation will be based on the results of the biopsies.
--- NOTE | 2016-12-19 15:44 | Anesthesiology Progress Note ---
Anesthesia Post Op Note Date & Time December 19, 2016 at 15:44 Vital Signs Pain Intensity: 0.0 Vital Signs Past 12 Hours Date Time Temp Pulse Resp B/P Pulse Ox O2 Delivery O2 Flow Rate FiO2 12/19/16 15:37 52 20 137/64 97 Room Air 12/19/16 15:18 58 20 126/63 96 Room Air 12/19/16 15:14 36.6 66 20 99 12/19/16 14:42 36.6 66 20 152/73 99 Room Air 12/19/16 12:00 97 Room Air 12/19/16 11:06 36.7 64 18 147/82 97 Room Air 12/19/16 08:00 97 Room Air 12/19/16 07:26 36.6 54 18 143/83 97 Room Air 12/19/16 07:13 36.6 66 18 158/82 96 Room Air 12/19/16 04:00 Room Air Notes Mental Status: alert / awake / arousable, participated in evaluation Pt Amnestic to Procedure: Yes Nausea / Vomiting: adequately controlled Pain: adequately controlled Airway Patency, RR, SpO2: stable & adequate BP & HR: stable & adequate Hydration State: stable & adequate Anesthetic Complications: no major complications apparent
[2016-12-19] MEDS ORDERED: PANT40TA PO (16:40)
--- NOTE | 2016-12-19 16:44 | Discharge Instructions ---
Discharge Instructions Date of Service December 19, 2016. Admission Reason for Admission: Chest Pain Discharge Discharge Diagnosis / Problem: Chest pain Discharge Goals Goal(s): Decrease discomfort, Improve function, Increase independence, Improve disease control, Diagnostic testing, Therapeutic intervention Activity Recommendations Activity Limitations: resume your previous activity Exercise/Sports Limitations: none Shower/Bathe: no limitations . Instructions / Follow-Up Instructions / Follow-Up Patient stable for discharge home Noted esophageal ulcer on scope Please take new medication protonix 40mg 1 tablet once a day in AM approximately 30 minutes before meal Please continue will all other home medications Follow up with Dr Sweeney in 1-2 weeks Please avoid caffeinated carbonated beverages, chocolates, peppermint and late night eating Current Hospital Diet Patient's current hospital diet: Low Fiber Diet Discharge Diet Recommended Diet: Low Fiber Diet Procedures Procedures Performed: EGD Pending Studies Studies pending at discharge: no Medical Emergencies . Who to Call and When: Medical Emergencies: If at any time you feel your situation is an emergency, please call 911 immediately. . Non-Emergent Contact Non-Emergency issues call your: Primary Care Provider Call Non-Emergent contact if: you have a fever, your pain is worsening . . "Provider Documentation" section prepared by Gavin Riggins. . VTE Core Measure Inpt VTE Proph given/why not?: SCD's
--- NOTE | 2016-12-19 16:58 | Discharge Summary ---
Discharge Summary Date of Service December 19, 2016. Discharge Summary Admission Date: Dec 16, 2016 at 15:10 Discharge Date: December 19, 2016 Discharge Disposition: Home Principal Diagnosis: chest pain, esophageal ulcer Consultations: GI Medication Reconciliation New Medications: Pantoprazole (Protonix) 40 Mg Tab 40 MG PO DAILY, #30 TAB Continued Medications: Cholecalciferol (Vitamin D3) 1,000 Inter.unit Tab 1000 INTER.UNIT PO QAM Famotidine (Pepcid) 20 Mg Tab 40 MG PO UD Ibuprofen (Motrin) 400 Mg Tab 400 MG PO Q6H PRN for Pain Multiple Vitamins W/ Minerals (One Daily 50 Plus) 1 Tab Tab 1 TAB PO QAM Oxybutynin Chloride (Ditropan) 5 Mg Tab 5 MG PO QAM Ranitidine HCl (Ranitidine HCl) 150 Mg Tab 150 MG PO UD PRN for Indigestion Discharge Exam Review of Systems: Constitutional: No chills, No fever Respiratory: No cough, No sputum Cardiovascular: No chest pain, No orthopnea Abdomen: No diarrhea, No nausea, No pain, No vomiting Musculoskeletal: No joint pain, No muscle pain Genitourinary - Female: No dysuria, No urinary frequency, No urinary urgency Neurologic: No paralysis, No weakness Physical Exam: General Appearance: WD/WN, no apparent distress Neck: supple, no adenopathy Respiratory/Chest: lungs clear, normal breath sounds Cardiovascular: no edema, no gallop Abdomen / GI: non tender, soft Neurologic/Psychiatric: alert, oriented x 3 Hospital Course 1. Dysphagia - Esophageal thickening on CT - also has lymphadenopathy - for EGD on 12/20, esophageal ulcer noted with no active bleeding - DC on protonix 40 mg once daily and f/u with GI, no further chest pain, instructed to avoid on diet and lifestyle changes 2. Aflutter - paroxysmal, no furhter episodes on tele - CHADSVAS of 2, discussed anticoagulation, which will also be dependent on EGD findings - no additional meds needed at this time 3. Anemia - h/h stable 4. BP elevation - cont to monitor - persistently above >140 during the day - will start low-dose amlodipine and monitor 5. dvt ppx scd Total Time Spent: Greater than 30 minutes This includes examination of the patient, discharge planning, medication reconciliation, and communication with other providers. Discharge Instructions Please refer to the electronic Patient Visit Report (Discharge Instructions) for additional information. Additional Copies To Manuela King M.D.
== END 2016-12-19 17:20 | disposition home or self-care (01) | DRG 313 ==
LOC: ENRESERVTM → ENRESERVDT → C.EDB 13:29 → EEVIPCON 19:51 → C.2T 19:51 → OBSVTOIN 12-16 15:10 → C.MS4W 12-19 15:48
PROVIDERS: ADMIT Internal Medicine; ATTEND Hospitalist
PROC: 0DB18ZX Excision of Upper Esophagus, Via Natural or Artificial Opening Endoscopic, Diagnostic (ICD-10-PCS; principal; 2016-12-19 14:39)
DX: R07.89 Other chest pain (principal); K22.10 Ulcer of esophagus without bleeding; I48.92 Unspecified atrial flutter; K21.9 Gastro-esophageal reflux disease without esophagitis; E78.5 Hyperlipidemia, unspecified; I48.91 Unspecified atrial fibrillation; K22.2 Esophageal obstruction; K44.9 Diaphragmatic hernia without obstruction or gangrene; R13.10 Dysphagia, unspecified; Z80.0 Family history of malignant neoplasm of digestive organs; Z84.89 Family history of other specified conditions; Z87.891 Personal history of nicotine dependence; R59.1 Generalized enlarged lymph nodes; R03.0 Elevated blood-pressure reading, without diagnosis of hypertension

== ENCOUNTER → 2017-01-31 | Outpatient (CLI) | payer BC ==
[~2017-01-31] MED LIST changes: +FAMO20TA11 PO; +IBUP-1459 PO; -OSEL75CA12 PO; +PANT40TA PO; +RANI150T2 PO
--- NOTE | 2017-01-31 14:43 | MAMMOGRAPHY REPORT ---
BILATERAL DIGITAL SCREENING MAMMOGRAM WITH CAD: 01/31/2017 CLINICAL HISTORY: Routine screening. Patient has no complaints. TECHNIQUE: Bilateral CC and MLO views were obtained. Current study was also evaluated with a Compute r Aided Detection (CAD) system. COMPARISON: Comparison is made to exams dated: 01/28/2016 mammogram, 01/26/2015 mammogram, 01/20/2014 mamm ogram, 01/08/2013 mammogram - [facility], 01/04/2011 mammogram, and 12/16/2009 mammogr am. BREAST COMPOSITION: There are scattered areas of fibroglandular density in both breasts. FINDINGS: The parenchymal pattern is similar to prior exams. There is a benign rim calcification wi thin the left breast. No developing mass, architectural distortion or cluster of suspicious microcal cifications is seen in either breast. IMPRESSION: ACR BI-RADS CATEGORY 2: BENIGN There is no mammographic evidence of malignancy. A 1 year screening mammogram is recommended. The pa tient will receive written notification of the results. Approximately 10% of breast cancers are not detected with mammography. A negative mammographic report should not delay biopsy if a clinically suggestive mass is present. Whit Barajas M.D. ay/:01/31/2017 08:47:44 Area Cleaner: Brittany NDIAYE(R)(M), [facility] letter sent: Normal 1/2 BI-RADS Code: ACR BI-RADS Category 2: Benign
== END | disposition home or self-care (01) ==
LOC: C.MAMM 07:31
PROVIDERS: ATTEND Family Medicine
DX: Z12.31 Encounter for screening mammogram for malignant neoplasm of breast (principal)